=== PATIENT | male | born 1960 | race Caucasian/White ===

== ENCOUNTER → 2019-05-06 08:00 | Outpatient (BNVA) | payer MEDICARE, MEDICAID, SELFPAY | PROVIDERS: Family Provider Family Medicine; PCP Nurse Practitioner; Referring Provider Nurse Practitioner; Visit Provider Nurse Practitioner | DX: E11.9 Type 2 diabetes mellitus without complications (principal) | CPT/HCPCS: 83036 ==

== ENCOUNTER 2019-08-23 00:53 | Emergency (ER) | payer MEDICARE, MEDICAID, SELFPAY ==
--- NOTE | 2019-08-23 01:15 | USCV_ITS ---
Yunier Miller Age: 59 Gender: M : 1960 Exam Date: 08/23/2019 01:48 Ordering Phys: Lilly Silva Technologist: Ministerio Rocha Exam Location: [facility] [place] Indication: NUMBNESS, HX OF STENTS-FEM/POP, NO DP PULSE FELT Risk Factors: Previous Vascular Surgery: RIGHT LEFT BP: 90.00 / 57.00 BP: 90.00/ 60.00 Waveform Velocity (cm/s) Velocity (cm/s) Waveform Iliac Prox 57.5 Monophasic Iliac Mid 57.8 Monophasic Iliac Distal 48.5 Monophasic DATABASE ANALYST Monophasic 49.6 SFA Prox 46.1 Monophasic SFA Mid 52.1 Monophasic SFA Dist 48.7 Monophasic POP 25.6 Monophasic [facility] CARE [facility] 12.0 Monophasic DPA 11.7 Monophasic MC 0.4 FINDINGS LT MC: 0.39 Low velocity, monophasic and continuous waveforms in the iliac and femoral and popliteal artery on the left side. Markedly diminished resting MC on the left side. CONCLUSIONS Abnormal resting MC suggestive of severe obstructive arterial disease on the left side. Possible high-grade lesion at the aortoiliac region with collateral filling of the distal vessels Clinical correlation is recommended. Dr Genesis Calles MD [facility] (Electronically Signed) Final Date: 23 Aug 2019 12:04 S
--- NOTE | 2019-08-23 01:17 | ED_ITS ---
HPI - General Adult General: Stated complaint: possible blood clot Time Seen by Provider: 08/23/19 01:01 Source: patient Mode of arrival: EMS Limitations: no limitations History of Present Illness: HPI narrative: Patient is a 59-year-old male who presents to ED today with complaints of bilateral hand numbness/tingling and numbness to his left lower extremity that began a few hours ago. Patient states upon arrival his symptoms have subsided. Patient tells me he has had numbness to his bilateral lower extremities previously related to his peripheral vascular disease. He also has had previous numbness to his hands that he reports also with due to poor circulation . EMS reported diffusely different blood pressures on patient's arms and patient told them he had some mild chest pain earlier today that has now subsided. Blood pressures to the extremities upon arrival are equal bilaterally. patient tells me he is not having any chest pain now. He has no abdominal pain. Onset (ago): hour(s) Pain Consistency: now resolved Relieving factors: none Exacerbating factors: none Associated symptoms: Reports no associated symptoms; Deny chest pain (briefly-earlier today; mild; none currently ), dyspnea (chronic ), headache(s), nausea, rash, palpitations, syncope or vomiting Treatments prior to arrival: none Review of Systems Const: Denies: fever, chills, body aches or fatigue Eyes: Denies: change in vision, blurry vision, photophobia, floaters or seeing flashes ENMT: Denies: throat pain, enlarged tonsils or painful swallowing Card: Reports: shortness of breath on exertion (chronic-not worsening), shortness of breath when lying down (chronic-COPD) and leg pain with exertion (chronically due to severe PVD); Denies: chest pain (briefly-earlier today; mild; none currently ), palpitations, irregular heart rhythm, edema, lightheadedness, syncope or pre-syncope Resp: Denies: shortness of breath (chronic ), pain on inspiration, coughing up blood or chest congestion GI: Denies: abdominal pain, nausea, vomiting, heartburn/indigestion or diarrhea : Denies: flank pain, difficulty urinating, painful urination, urinary frequency, urinary urgency or urinary hesitancy Musc: Denies: neck pain, back pain or joint pain Skin/Breast: Denies: rash Neuro: Reports: numbness in extremities (subsided now); Denies: headache or weakness in extremities PFSH ED PFSH: Medical History (Updated 08/23/19 @ 02:16 by ARLINE Alegria) Benign hypertension Chronic headache COPD, mild Deviated nasal septum, congenital Hyperlipidemia Insomnia Peripheral neuropathy Surgical History (Updated 05/20/19 @ 12:08 by Aleah Padron MD) H/O xoque-vrvsh-jvexicq bypass H/O foot surgery History of back surgery Social History (Updated 05/20/19 @ 11:38 by Zeynep Cartagena LPN) Smoking and tobacco status: current every day smoker cigarettes Packs smoked per day: 0.5 Quit status (tobacco): considering quitting Second hand smoke exposure: No Alcohol intake: current Alcohol intake frequency: holidays/special occasions only Desire information about alcohol rehabilitation?: No Physical Exam Const: COMMON NORMALS: no apparent distress, average body habitus, oriented x3, no limitations, healthy appearing, alert and well nourished ORIENTATION/CONSCIOUSNESS: Yes oriented to person, Yes oriented to place and Yes oriented to time Chest: COMMONS NORMALS: inspection of chest normal and palpation of chest normal Resp: COMMON NORMALS: normal respiratory effort and clear to auscultation bilaterally AUSCULTATION: clear to auscultation bilaterally Cardio: COMMON NORMALS: regular rate and regular rhythm RATE: regular rate RHYTHM: regular rhythm BRUITS: no carotid bruits PERIPHERAL PULSES: radial pulses present GI: COMMON NORMALS: normal to inspection, nondistended, normoactive bowel sounds, soft to palpation, non-tender, no hepatosplenomegaly and no masses PALPATION: Yes soft and Yes no hepatosplenomegaly Extremity: OTHER: pt with bilateral LE coolness that he states is normal with his PVD; I cannot palpate a left dorsalis pedis pulse; strength intact; cap refill intact Neuro: PERLA COMA SCALE: document GCS findings [place] coma scale eye opening: Spontaneous [place] coma scale verbal response: Orientated [place] coma scale motor response: Obey commands Perla coma scale total score: 15 COMMON NORMALS: oriented x3, CN's II-XII intact bilaterally, moves all extremities, no focal motor deficits and no sensory deficits noted SENSORIUM/ORIENTATION: Yes alert, Yes oriented to person, Yes oriented to place and Yes oriented to time MDM - General Adult MDM Narrative: Medical decision making narrative: Patient symptoms have fully subsided upon arrival. He has no acute neurological deficits on his exam. Ultrasound showing monophasic flow through his left lower extremity which most likely is the patient's baseline. His labs including coags are non-concerning at this time. Blood pressures on both arms are equal. He is not having any chest pain or abdominal pain. At this time I do not have any concern for PE, dissection, aneurysm, cardiac ischemia, acute arterial occlusion, TIA/CVA or any other emergent process at this time. Patient is stable for discharge. Lab Data: Labs: Lab Results 08/23/19 08/23/19 08/23/19 Range/Units 01:30 01:30 01:30 WBC 10.0 (4.0-10.0) 10^3/ uL RBC 4.37 (4.1-5.3) 10^6/u L Hgb 13.4 (11.7-16.6) g/dL Hct 40.6 L (42.0-52.0) % MCV 92.9 (80-94) fL MCH 30.7 (28.0-34.0) pg MCHC 33.0 (30.0-36.0) g/dL RDW 14.0 (12.1-15.1) % Plt Count 275 (130-400) 10^3/c mm MPV 9.7 (7.4-10.4) fL Neut % (Auto) 74.1 % Lymph % (Auto) 18.9 % [place] % (Auto) 5.9 % Eos % (Auto) 0.6 % Baso % (Auto) 0.2 % Neut # (Auto) 7.4 (1.8-7.7) 10^3/u L Lymph # (Auto) 1.9 (0.8-4.8) 10^3/u L [place] # (Auto) 0.6 (0.2-0.9) 10^3/u L Eos # (Auto) 0.1 (0.0-0.8) 10^3/u L Baso # (Auto) 0.0 (0.0-0.1) 10^3/u L Nucleated RBC % (a uto) 0 % Nucleated RBCs # 0.0 /100WBC PT 13.70 H (10.5-13.3) SECO NDS INR 1.02 (0.8-1.2) APTT 31.0 (23.9-36.7) SECO NDS Sodium 135 L (136-145) mmol/L Potassium 4.4 (3.5-5.1) mmol/L Chloride 99 (98-107) mmol/L Carbon Dioxide 20 L (22-29) mmol/L Anion Gap 20.4 H (5-19) BUN 11 (6-20) mg/dL Creatinine 1.6 H (0.7-1.2) mg/dL GFR Calculation 44.6 L (90-130) mL/min Glucose 98 (65-115) mg/dL Calculated Osmolal ity 276 L (285-295) mOsm/k g Calcium 9.0 (8.5-10.5) mg/dL Total Bilirubin 0.2 (0.15-1.2) mg/dL AST 16 (0-40) U/L ALT 22 (0-41) U/L Alkaline Phosphata se 104 (40-130) IU/L Total Protein 6.7 (6.6-8.7) g/dL Albumin 4.0 (3.5-5.2) g/dL Globulin 2.7 (1.3-4.6) g/dL Imaging Data^: US left arterial LE: My impression: Per Ministerio Rocha-monophasic flow throughout; no acute arterial occulsion Discharge Plan Discharge Patient Disposition: Home, Self-Care Clinical Impression: PVD (peripheral vascular disease), Paresthesia Condition: Stable Prescriptions: No Action atorvastatin 80 mg tablet 80 mg PO QDAY RF: 0 fenofibrate micronized 134 mg capsule 134 mg PO QDAY RF: 0 gabapentin 800 mg tablet 800 mg PO TID RF: 0 lisinopril 10 mg tablet 10 mg PO BID RF: 0 coenzyme Q10 200 mg capsule 200 mg PO QDAY RF: 0 CeraVe Cream 1 applic TOPICAL BID RF: 0 tizanidine 4 mg capsule 4 mg PO BID PRNRF: 0 oxcarbazepine 150 mg tablet 150 mg PO BID RF: 0 metoprolol tartrate 25 mg tablet 25 mg PO BID RF: 0 fluticasone propionate [Flonase Allergy Relief] 50 mcg/actuation spray,suspension 1 spray INTRANASAL BID RF: 0 ferrous sulfate 140 mg (45 mg iron) tablet extended release 140 mg PO QDAY RF: 0 isosorbide mononitrate 30 mg tablet extended release 24 hr 30 mg PO QDAY RF: 0 nitroglycerin 0.4 mg tablet, sublingual 0.4 mg SUBLINGUAL Q5M PRNRF: 0 aspirin 325 mg tablet 325 mg PO QDAY RF: 0 amitriptyline 10 mg tablet 20 mg PO QDAY RF: 0 Discharge Orders: Discharge Order (Routine); Ordered 08/23/19 Ordered By: Lilly Silva Referrals: Laney Mata FNP [Primary Care Provider] - Jeiym Mcadams DO [Family Provider] - Discharge Diet: Usual diet Discharge Activity: Resume usual activity Activity Restrictions/Additional Instructions: Follow up with primary care next week for continued symptoms. Return to the emergency department for worsening numbness, tingling, loss of sensation, facial drooping, headache, chest pain, shortness of breath, severe abdominal pain, or any other concerns you may have. 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
[2019-08-23 01:55] LABS: Basophils % 0.2 %; Eosinophils # 0.1 10^3/uL (0.0-0.8); Eosinophils % 0.6 %; Hematocrit 40.6 % (42.0-52.0); Hemoglobin 13.4 g/dL (11.7-16.6); Lymphocytes # 1.9 10^3/uL (0.8-4.8); Lymphocytes % 18.9 %; Mean Corpuscular Hemoglobin 30.7 pg (28.0-34.0); Mean Corpuscular Volume 92.9 fL (80-94); Mean Platelet Volume 9.7 fL (7.4-10.4); Monocytes # 0.6 10^3/uL (0.2-0.9); Monocytes % 5.9 %; Neutrophils # 7.4 10^3/uL (1.8-7.7); Neutrophils % 74.1 %; Nucleated Red Blood Cells % 0 %; Platelet Count 275 10^3/cmm (130-400); Red Blood Count 4.37 10^6/uL (4.1-5.3)
[2019-08-23 02:05] LABS: INR 1.02 (0.8-1.2)
[2019-08-23 02:09] LABS: Alanine Aminotransferase 22 U/L (0-41); Alkaline Phosphatase 104 IU/L (40-130); Anion Gap 20.4 (5-19); Aspartate Amino Transferase 16 U/L (0-40); Blood Urea Nitrogen 11 mg/dL (6-20); Carbon Dioxide 20 mmol/L (22-29); Chloride 99 mmol/L (98-107); Globulin 2.7 g/dL (1.3-4.6); Glomerular Filtration Rate 44.6 mL/min (90-130); Glucose 98 mg/dL (65-115); Osmolality Calculated 276 mOsm/kg (285-295); Potassium 4.4 mmol/L (3.5-5.1); Sodium 135 mmol/L (136-145); Total Bilirubin 0.2 mg/dL (0.15-1.2); Total Protein 6.7 g/dL (6.6-8.7)
[2019-08-23 02:52] VITALS: BP 85/62; PULSE 73; RESP 16; O2SAT 99
== END 2019-08-23 03:13 | disposition home or self-care (01) ==
PROVIDERS: Emergency Provider Physician Assistant; Family Provider Family Medicine; PCP Nurse Practitioner
DX: R20.2 Paresthesia of skin (principal); I73.9 Peripheral vascular disease, unspecified; Z79.82 Long term (current) use of aspirin; I10 Essential (primary) hypertension; J44.9 Chronic obstructive pulmonary disease, unspecified; E78.5 Hyperlipidemia, unspecified; F17.210 Nicotine dependence, cigarettes, uncomplicated; R06.02 Shortness of breath
CPT/HCPCS: 12345; 80053; 85025; 85610; 85730; 93926; 99281; 99283

== ENCOUNTER → 2019-08-27 10:15 | Outpatient (BNVA) | payer MEDICARE, MEDICAID, SELFPAY | PROVIDERS: Family Provider Family Medicine; PCP Nurse Practitioner; Visit Provider Family Medicine | DX: R74.8 Abnormal levels of other serum enzymes (principal) | CPT/HCPCS: 80048 ==

== ENCOUNTER 2020-01-09 14:00 | Emergency (ER) | payer MEDICARE, MEDICAID, SELFPAY ==
[2020-01-09 14:12] VITALS: BP 134/96; PULSE 83; RESP 18; TEMP 36.3; O2SAT 96; BMI 25.9
--- NOTE | 2020-01-09 14:44 | XRR_ITS ---
PROCEDURE INFORMATION: Exam: XR Chest, 1 View Exam date and time: 01/09/2020 3:04 PM Age: 59 years old Clinical indication: Shortness of breath; Additional info: SOB TECHNIQUE: Imaging protocol: XR of the chest Views: 1 view. COMPARISON: No relevant prior studies available. FINDINGS: Lungs: There is a calcified granuloma in the left upper lobe of the lung. No consolidation. Pleural space: Unremarkable. No pleural effusion. No pneumothorax. Heart/Mediastinum: Unremarkable. No cardiomegaly. Bones/joints: Unremarkable. XR/XR chest 1V portable [id number] IMPRESSION: No acute findings.
--- NOTE | 2020-01-09 14:45 | ECG_ITS ---
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 Measurements Intervals [place] Rate: 81 P: 15 MO: 169 QRS: 18 QRSD: 115 T: 24 QT: 394 QTc: 459 Interpretive Statements SINUS RHYTHM POSSIBLE LATERAL MYOCARDIAL INFARCTION , PROBABLY OLD [30 ms Q WAVE IN I/aVL/V5/V6] No previous ECG available for comparison Electronically Signed On 01-09-2020 19:41:44 CDT by Genesis Calles M.D. [id number]
[2020-01-09] MEDS: ipratropium-albuterol 3 mL Neb INHALATION (15:07)
[2020-01-09 15:11] VITALS: PULSE 77; RESP 16; O2SAT 95
[2020-01-09 15:14] VITALS: PULSE 78
--- NOTE | 2020-01-09 15:22 | ED_ITS ---
HPI - SOB/Dyspnea General: Chief Complaint: Shortness of Breath/Dyspnea Stated Complaint: SOB Time Seen by Provider: 01/09/20 14:37 History of Present Illness: HPI Narrative: This patient is a 59-year-old male who presents today with shortness of breath. He said he has not been feeling well for the past couple of days and today was doing some light work around the house. He was on a ladder working over his head and started having some mild chest pain but mostly shortness of breath and lightheadedness. He felt his heart was racing. He has had these episodes before and at times has even passed out from them. He went to see his doctor at the [facility] and [place] and was sent to the ER. He did have a COVID test done there. He has not had any fevers. He has a chronic cough. He has a history of COPD. He continues to smoke. He has oxygen that he uses at night sometimes. He also has inhalers that he sometimes uses. He denies a history of heart attacks. MD elicited complaint: shortness of breath, cough and chest pain Pertinent past history: COPD Onset (ago): hour(s) (5 or 6) Associated symptoms: Reports chest pain; Deny abdominal pain, fever(s), nausea or vomiting Review of Systems General: Reports: 10 or more systems reviewed and unremarkable except in HPI and below Const: Reports: fatigue; Denies: fever(s), chills or malaise Eyes: Denies: change in vision ENMT: Denies: odynophagia Card: Reports: chest pain and dyspnea on exertion; Denies: swelling of feet/ankles Resp: Denies: dyspnea, productive cough or non-productive cough GI: Denies: abdominal pain, nausea or vomiting : Denies: flank pain Musc: Denies: neck pain or back pain Skin/Breast: Denies: rash Neuro: Denies: headache(s), numbness in extremities or weakness in extremities Adria/Lymph: Denies: easy bruising or easy bleeding PFS ED PFSH: Medical History Benign hypertension Chest pain Chronic headache COPD (chronic obstructive pulmonary disease) COPD, mild Deviated nasal septum, congenital Hyperlipidemia Insomnia Near syncope Palpitations Peripheral neuropathy Surgical History H/O titpe-wjtvw-jvbuugi bypass H/O foot surgery History of back surgery Family History Other Cancer Diabetes Heart disease Social History Smoking and tobacco status: current every day smoker cigarettes Packs smoked per day: 0.5 Quit status (tobacco): considering quitting Second hand smoke exposure: No Alcohol intake: current Alcohol intake frequency: holidays/special occasions only Desire information about alcohol rehabilitation?: No Physical Exam Const: COMMON NORMALS: no acute distress, patient oriented x3, no limitations and alert GENERAL APPEARANCE: cooperative and comfortable HENMT: HEAD & SCALP: normal to inspection FACE & SINUS: normal facial exam Eye: GENERAL EYE: appearance normal, both eyes and all related structures Neck/C-Spine: COMMON NORMALS: supple, no meningeal signs and no JVD Chest: COMMONS NORMALS: normal inspection of the chest Resp: COMMON NORMALS: normal respiratory effort, No use of accessory muscles and clear to auscultation bilaterally AUSCULTATION: clear to auscultation bilaterally Cardio: COMMON NORMALS: no JVD, regular rate, regular rhythm and No murmurs present (Cardio) RATE: regular rate RHYTHM: regular rhythm GI: COMMON NORMALS: Normal to inspection, nondistended, normoactive bowel sounds present, Soft to palpation and non-tender INSPECTION: Yes normal to in spection AUSCULTATION: Yes normoactive bowel sounds PALPATION: Yes Soft to palpation Back/Pelvis: COMMON NORMALS: thoracic and lumbar spine normal to inspection Extremity: COMMON NORMALS: normal to inspection Neuro: COMMON NORMALS: patient oriented x3, moves all extremities, no focal motor deficits and no sensory deficits noted SENSORIUM/ORIENTATION: Yes alert MENINGEAL SIGNS: Yes no meningeal signs Psych: COMMON NORMALS: mental status grossly normal, cooperative and normal affect Skin: COMMON NORMALS: no rashes or lesions noted and turgor normal GENERAL SKIN EXAM: no rashes or lesions noted and turgor normal Course ED course: Patient with a normal work-up. His symptoms started while he was working overhead. We discussed that this could be related to some sort of blood flow issue in the blood vessels in his neck. He is completely asymptomatic for the most part here but I suggested that he avoid working over his head, follow- up with his doctor to discuss whether further evaluation is reasonable. He was feeling much better and was discharged home from the ER. He understands to return if he has any new or worse symptoms. Vital Signs: Vital signs: Vital Signs Temperature 97.3 F L 01/09/20 18:15 Pulse Rate 89 01/09/20 18:15 Respiratory Rate 16 01/09/20 18:15 Blood Pressure 161/104 01/09/20 18:15 Pulse Oximetry 94 01/09/20 18:15 MDM - SOB/Dyspnea Lab Data: Labs: Lab Results 01/09/20 01/09/20 01/09/20 Range/Units 14:56 14:56 14:56 WBC 8.9 (4.0-10.0) 10^3/ uL RBC 4.39 (4.1-5.3) 10^6/u L Hgb 14.5 (11.7-16.6) g/dL Hct 42.9 (42.0-52.0) % MCV 97.7 H (80-94) fL MCH 33.0 (28.0-34.0) pg MCHC 33.8 (30.0-36.0) g/dL RDW 13.6 (12.1-15.1) % Plt Count 307 (130-400) 10^3/c mm MPV 9.0 (7.4-10.4) fL Neut % (Auto) 73.6 % Lymph % (Auto) 20.2 % [place] % (Auto) 5.5 % Eos % (Auto) 0.2 % Baso % (Auto) 0.2 % Neut # (Auto) 6.57 (1.8-7.7) 10^3/u L Lymph # (Auto) 1.8 (0.8-4.8) 10^3/u L [place] # (Auto) 0.5 (0.2-0.9) 10^3/u L Eos # (Auto) 0.0 (0.0-0.8) 10^3/u L Baso # (Auto) 0.0 (0.0-0.1) 10^3/u L Nucleated RBC % (a uto) 0 % Nucleated RBCs # 0.0 /100WBC D-Dimer 0.45 (0-0.59) ug/mIFE U Sodium 135 L (136-145) mmol/L Potassium 4.7 (3.5-5.1) mmol/L Chloride 102 (98-107) mmol/L Carbon Dioxide 22 (22-29) mmol/L Anion Gap 15.7 (5-19) BUN 9 (6-20) mg/dL Creatinine 1.0 (0.7-1.2) mg/dL GFR Calculation 76.7 L (90-130) mL/min Glucose 89 (65-115) mg/dL Calculated Osmolal ity 278 L (285-295) mOsm/k g Calcium 9.4 (8.5-10.5) mg/dL Total Bilirubin 0.3 (0.15-1.2) mg/dL AST 15 (0-40) U/L ALT 20 (0-41) U/L Alkaline Phosphata se 84 (40-130) IU/L Troponin T Baselin e (0-15) ng/L Troponin T 120 Min [place] (0-15) ng/L Delta Troponin T (0-10) ABS# NT-Pro-B Natriuret Pep 66 (0-125) pg/mL Total Protein 7.5 (6.6-8.7) g/dL Albumin 4.3 (3.5-5.2) g/dL Globulin 3.2 (1.3-4.6) g/dL 01/09/20 01/09/20 Range/Units 14:56 17:05 WBC (4.0-10.0) 10^3/ uL RBC (4.1-5.3) 10^6/u L Hgb (11.7-16.6) g/dL Hct (42.0-52.0) % MCV (80-94) fL MCH (28.0-34.0) pg MCHC (30.0-36.0) g/dL RDW (12.1-15.1) % Plt Count (130-400) 10^3/c mm MPV (7.4-10.4) fL Neut % (Auto) % Lymph % (Auto) % [place] % (Auto) % Eos % (Auto) % Baso % (Auto) % Neut # (Auto) (1.8-7.7) 10^3/u L Lymph # (Auto) (0.8-4.8) 10^3/u L [place] # (Auto) (0.2-0.9) 10^3/u L Eos # (Auto) (0.0-0.8) 10^3/u L Baso # (Auto) (0.0-0.1) 10^3/u L Nucleated RBC % (a uto) % Nucleated RBCs # /100WBC D-Dimer (0-0.59) ug/mIFE U Sodium (136-145) mmol/L Potassium (3.5-5.1) mmol/L Chloride (98-107) mmol/L Carbon Dioxide (22-29) mmol/L Anion Gap (5-19) BUN (6-20) mg/dL Creatinine (0.7-1.2) mg/dL GFR Calculation (90-130) mL/min Glucose (65-115) mg/dL Calculated Osmolal ity (285-295) mOsm/k g Calcium (8.5-10.5) mg/dL Total Bilirubin (0.15-1.2) mg/dL AST (0-40) U/L ALT (0-41) U/L Alkaline Phosphata se (40-130) IU/L Troponin T Baselin e 11 (0-15) ng/L Troponin T 120 Min [place] 9.87 (0-15) ng/L Delta Troponin T -1.13 L (0-10) ABS# NT-Pro-B Natriuret Pep (0-125) pg/mL Total Protein (6.6-8.7) g/dL Albumin (3.5-5.2) g/dL Globulin (1.3-4.6) g/dL Discharge Plan Discharge Patient Disposition: Home Clinical Impression: COPD, mild Chest pain Qualifiers: Chest pain type: unspecified Qualified Code(s): R07.9 - Chest pain, unspecified Condition: Stable Prescriptions: No Action coenzyme Q10 200 mg capsule 200 mg PO DAILY RF: 0 CeraVe Cream 1 applic TOPICAL BID RF: 0 tizanidine 4 mg capsule 4 mg PO BID PRN (Reason: Muscle Pain) RF: 0 oxcarbazepine 150 mg tablet 150 mg PO BID RF: 0 metoprolol tartrate 25 mg tablet 25 mg PO BID RF: 0 fluticasone propionate [Flonase Allergy Relief] 50 mcg/actuation spr ay,suspension 1 spray INTRANASAL BID RF: 0 ferrous sulfate 140 mg (45 mg iron) tablet extended release 140 mg PO DAILY RF: 0 isosorbide mononitrate 30 mg tablet extended release 24 hr 30 mg PO DAILY RF: 0 nitroglycerin 0.4 mg tablet, sublingual 0.4 mg SUBLINGUAL Q5M PRN (Reason: Chest Pain) RF: 0 aspirin 325 mg tablet 325 mg PO DAILY RF: 0 amitriptyline 10 mg tablet 20 mg PO DAILY RF: 0 fenofibric acid (choline) 135 mg capsule,delayed release(DR/EC) 135 mg PO DAILY 90 Days Qty: 90 RF: 2 lisinopril 10 mg tablet 10 mg PO BID 90 Days Qty: 180 RF: 1 gabapentin 800 mg tablet 800 mg PO TID 90 Days Qty: 270 RF: 2 Crestor 10 mg Tablet 10 mg PO DAILY RF: 0 Discharge Orders: Discharge Order (Routine); Ordered 01/09/20 Ordered By: Diamond Nieto Referrals: Laney Mata FNP [Primary Care Provider] - Discharge Diet: Usual diet Discharge Activity: Resume usual activity Patient Instructions: Chest Pain (ED) Activity Restrictions/Additional Instructions: Return to the ED if new or worse symptoms. Talk with your primary care doctor about the dizzy spells while working of your head. 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
[2020-01-09 15:23] LABS: Basophils % 0.2 %; Eosinophils % 0.2 %; Hematocrit 42.9 % (42.0-52.0); Hemoglobin 14.5 g/dL (11.7-16.6); Lymphocytes # 1.8 10^3/uL (0.8-4.8); Lymphocytes % 20.2 %; Mean Corpuscular HGB Conc 33.8 g/dL (30.0-36.0); Mean Corpuscular Volume 97.7 fL (80-94); Monocytes # 0.5 10^3/uL (0.2-0.9); Monocytes % 5.5 %; Neutrophils # 6.57 10^3/uL (1.8-7.7); Neutrophils % 73.6 %; Nucleated Red Blood Cells % 0 %; Platelet Count 307 10^3/cmm (130-400); Red Blood Count 4.39 10^6/uL (4.1-5.3); Red Cell Distribution Width 13.6 % (12.1-15.1); White Blood Count 8.9 10^3/uL (4.0-10.0)
[2020-01-09 15:40] LABS: D Dimer 0.45 ug/mIFEU (0-0.59)
[2020-01-09 15:48] LABS: Troponin(5th) Baseline 11 ng/L (0-15)
[2020-01-09 15:55] LABS: Alanine Aminotransferase 20 U/L (0-41); Albumin Level 4.3 g/dL (3.5-5.2); Alkaline Phosphatase 84 IU/L (40-130); Anion Gap 15.7 (5-19); Aspartate Amino Transferase 15 U/L (0-40); Blood Urea Nitrogen 9 mg/dL (6-20); Calcium 9.4 mg/dL (8.5-10.5); Carbon Dioxide 22 mmol/L (22-29); Chloride 102 mmol/L (98-107); Globulin 3.2 g/dL (1.3-4.6); Glomerular Filtration Rate 76.7 mL/min (90-130); Glucose 89 mg/dL (65-115); NT Pro B Type Natriuretic Pept 66 pg/mL (0-125); Osmolality Calculated 278 mOsm/kg (285-295); Potassium 4.7 mmol/L (3.5-5.1); Sodium 135 mmol/L (136-145); Total Bilirubin 0.3 mg/dL (0.15-1.2); Total Protein 7.5 g/dL (6.6-8.7)
--- NOTE | 2020-01-09 16:45 | ECG_ITS ---
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 Measurements Intervals [place] Rate: 85 P: 36 AL: 170 QRS: 42 QRSD: 96 T: 42 QT: 378 QTc: 450 Interpretive Statements SINUS RHYTHM POSSIBLE RIGHT VENTRICULAR CONDUCTION DELAY [RSR (QR) IN V1/V2] No previous ECG available for comparison Electronically Signed On 01-09-2020 19:54:38 CDT by Genesis Calles M.D. [id number] f
[2020-01-09 17:30] LABS: Troponin 5 2HR 9.87 ng/L (0-15)
[2020-01-09 17:31] LABS: Troponin 5 2HR Delta -1.13 ABS# (0-10)
[2020-01-09 18:15] VITALS: BP 161/104; PULSE 89; RESP 16; TEMP 36.3; O2SAT 94
== END 2020-01-09 18:15 | disposition home or self-care (01) ==
PROVIDERS: Emergency Provider Emergency Medicine; PCP Nurse Practitioner
DX: J44.9 Chronic obstructive pulmonary disease, unspecified (principal); R07.9 Chest pain, unspecified; Z79.82 Long term (current) use of aspirin; I10 Essential (primary) hypertension; E78.5 Hyperlipidemia, unspecified; F17.210 Nicotine dependence, cigarettes, uncomplicated
CPT/HCPCS: 12345; 36415; 71045; 80053; 83880; 84484; 85025; 85378; 87635; 93005; 94640; 96374; 99282; 99284; J2930

== ENCOUNTER → 2020-09-07 13:55 | Outpatient (BNVA) | payer MEDICARE, MEDICAID, SELFPAY | PROVIDERS: PCP Nurse Practitioner; Visit Provider Family Medicine | DX: G62.9 Polyneuropathy, unspecified (principal); I10 Essential (primary) hypertension; B35.1 Tinea unguium; Q84.5 Enlarged and hypertrophic nails; E78.2 Mixed hyperlipidemia; R74.8 Abnormal levels of other serum enzymes; I50.42 Chronic combined systolic (congestive) and diastolic (congestive) heart failure; G63 Polyneuropathy in diseases classified elsewhere; I73.9 Peripheral vascular disease, unspecified | CPT/HCPCS: 80053; 80061 ==

== ENCOUNTER → 2021-03-11 11:48 | Outpatient (BNVA) | payer MEDICARE, MEDICAID, SELFPAY | PROVIDERS: PCP Family Medicine; Visit Provider Family Medicine | DX: I10 Essential (primary) hypertension (principal); E78.5 Hyperlipidemia, unspecified; G62.9 Polyneuropathy, unspecified; I50.42 Chronic combined systolic (congestive) and diastolic (congestive) heart failure; I25.10 Atherosclerotic heart disease of native coronary artery without angina pectoris; E78.2 Mixed hyperlipidemia; M54.9 Dorsalgia, unspecified; G89.29 Other chronic pain; J44.9 Chronic obstructive pulmonary disease, unspecified; B37.2 Candidiasis of skin and nail; B35.6 Tinea cruris | CPT/HCPCS: 80053; 80061; 85025 ==

== ENCOUNTER → 2021-04-16 14:22 | Outpatient (BNVA) | payer MEDICARE, MEDICAID, SELFPAY | PROVIDERS: PCP Family Medicine; Visit Provider Nurse Practitioner Family | DX: R39.9 Unspecified symptoms and signs involving the genitourinary system (principal) | CPT/HCPCS: 81000 ==

== ENCOUNTER → 2021-06-11 16:42 | Outpatient (BNVA) | payer MEDICARE, MEDICAID, SELFPAY | PROVIDERS: PCP Family Medicine; Visit Provider Nurse Practitioner Family | DX: R07.81 Pleurodynia (principal) | CPT/HCPCS: 71100 ==

== ENCOUNTER → 2021-08-19 16:00 | Outpatient (BNVA) | payer MEDICARE, MEDICAID, SELFPAY | PROVIDERS: PCP Family Medicine; Visit Provider Emergency Medicine | DX: R31.9 Hematuria, unspecified (principal); R31.0 Gross hematuria | CPT/HCPCS: 80053; 81000; 85025; 86301; 87086; 88112; G0103 ==

== ENCOUNTER → 2021-09-16 08:22 | Outpatient (BNVA) | payer MEDICARE, MEDICAID, SELFPAY | PROVIDERS: PCP Family Medicine; Visit Provider Nurse Practitioner Family | DX: R31.0 Gross hematuria (principal) | CPT/HCPCS: 51741; 51798; 81003; 87086; 88112; 99203 ==

== ENCOUNTER 2021-10-07 10:22 | Outpatient (CLI) | payer MEDICARE, MEDICAID, SELFPAY ==
[2021-10-07 11:50] LABS: Blood Urea Nitrogen 8 mg/dL (8-23); Glomerular Filtration Rate 76.2 mL/min (90-130)
--- NOTE | 2021-10-07 12:30 | CT_ITS ---
WS: [id number] CT ABDOMEN PELVIS TECHNIQUE: Noncontrast CT of the abdomen and contrast-enhanced CT of the abdomen and pelvis with mckenzie nal and sagittal reformatted images. CLINICAL INFORMATION: GROSS HEMATURIA COMPARISON: None. DLP: 3440.[address] scans at [facility] use at least one of these dose optimization techniques: automated e xposure control; mA and/or kV adjustment per patient size (includes targeted exams where dose is matc hed to clinical indication); or iterative reconstruction. FINDINGS: Noncontrast liver is normal. Splenic granulomas. Fatty atrophy of the pancreas. Prior Kaci fundopli cation. Slight bibasilar atelectasis. Adrenal glands are normal. No hydronephrosis in either kidney. Cholelithiasis. Normal caliber abdominal aorta. Mild aortic calcification. No obstructing renal or ur eteral calculi. Tiny RIGHT renal cysts. Vascular calcification. No obstructing renal or ureteral calc nazia. Normal excretion on the delayed images. No filling defects in the ureters. Normal visualized mery dder. Normal bladder filling on the delayed images. Normal portal vein and splenic vein. Mild diffuse fatty infiltration the liver. Splenic granulomas. P ancreas appears normal. Tiny fat-containing umbilical hernia. Normal appendix in the RIGHT lower quad rant. No free fluid in the abdomen or pelvis. Prior femorofemoral bypass graft. LEFT common iliac criselda ears occluded. No periaortic lymphadenopathy. No pelvic or inguinal lymphadenopathy. Small fat-contai mandy inguinal hernias. Pedicle screw fixation L5-S1 with interbody fusion. Slight retrolisthesis L2 o n L3. CT/CT abdomen pelvis wo/w 24020 IMPRESSION: 1. Normal renal cortical enhancement. No hydronephrosis in either kidney. 2. No obstructing renal or ureteral calculi. 3. Tiny RIGHT renal cysts. 4. Normal excretion on the delayed images. No obstructing ureteral calculi or filling defects. 5. Bladder appears normal. 6. Prostate calcification measuring 4.1 cm. 7. Prior Kaci fundoplication. 8. Tiny calculi in the gallbladder. 9. Prior femorofemoral bypass graft. 10. LEFT common iliac artery appears occluded.
[2021-10-07] MEDS: iohexol 300 mg/mL 100 mL Btl IV (12:38)
== END 2021-10-07 10:23 | disposition home or self-care (01) ==
PROVIDERS: Urology; PCP Family Medicine; Visit Provider Nurse Practitioner Family
DX: N28.1 Cyst of kidney, acquired (principal); K80.20 Calculus of gallbladder without cholecystitis without obstruction; R31.0 Gross hematuria
CPT/HCPCS: 52000; 74178; 81003; 82565; 84520; 99213

== ENCOUNTER 2021-12-20 14:47 | Observation (INO) | payer MEDICARE, MEDICAID, SELFPAY ==
[2021-12-20] VITALS (30 sets, daily range): BP systolic 112–138; BP diastolic 76–96; PULSE 68–95; RESP 13–28; TEMP 36.8–36.9; O2SAT 91–99; BMI 25.5
--- NOTE | 2021-12-20 14:52 | ECG_ITS ---
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 Measurements Intervals [place] Rate: 91 P: 24 NM: 164 QRS: -1 QRSD: 96 T: 85 QT: 370 QTc: 456 Interpretive Statements SINUS RHYTHM ST DEVIATION AND MODERATE T-WAVE ABNORMALITY, CONSIDER ANTEROLATERAL ISCHEMIA [-0.1+ mV T-WAVE IN V3-V6] Compared to ECG 01/09/2020 15:26:29 T-wave abnormality now present Possible ischemia now present Myocardial infarct finding no longer present Electronically Signed On 12-21-2021 16:30:01 CDT by Lavelle Markham M.D. [id number]
[2021-12-20] MEDS: heparin 5,000 unit/mL INJ 1 mL 4000 UNIT IVP (15:03)
[2021-12-20] MEDS: clopidogrel 300 mg Tablet 600 MG PO (15:04)
--- NOTE | 2021-12-20 15:14 | PM.HP ---
Providers/Chief Complaint Admitting Physician: cody Primary Care Provider: Aleah Padron MD Chief Complaint: STEMI History of Present Illness Yunier Miller is a 61 year old male with a history of coronary artery disease. I do not know the details of this he tells me that he has had 2 stents placed in the past. Last night he was feeling fine but when he went to bed he stated that he was sweating all night. He was not complaining of shortness of breath or chest discomfort. This morning at about 8:00 he noticed the onset of shortness of breath. When I specifically asked him about chest pain he said no just some pressure there . He went to the local clinic in [place] early this afternoon. After taking the history they obtained an EKG and noticed some changes in his anterior precordial leads. They called an ambulance to bring him here. In the ambulance he received a sublingual nitroglycerin, 1 inch of Nitropaste, 350 mL of normal saline, aspirin 325 mg and 4 mg of Zofran. In route his blood pressure was 122/84. He was not having any chest pain according to the ambulance crew On his arrival here his blood pressure is 122/84. He is not having any chest pain at all. I gave him 4000 units of heparin and 600 mg of Plavix. The EKG from the ambulance shows a Wellens phenomenon in the anterior precordial leads especially leads V1 through V4. The twelve-lead EKG shows the same finding which suggest anterolateral ischemia. It does not meet the criteria for an ST segment elevation [place]. Has been smoking since he was a teenager. He has underlying COPD. He also has dyslipidemia, hypertension and peripheral arterial disease. He tells me that he has stents in both legs and then has had an aorto iliac bypass of some kind. Review of Systems Narrative: The review of systems is negative aside from the sweating that he described overnight. Medications/Allergies Home Medications Medication Instructions Recorded Confirmed Last Taken Type amitriptyline 10 mg tablet 20 mg PO DAILY 05/16/19 12/20/21 01/08/20 History aspirin 325 mg tablet 325 mg PO DAILY 05/16/19 12/20/21 01/09/20 History coenzyme Q10 200 mg capsule 200 mg PO DAILY 05/16/19 12/20/21 01/09/20 History ferrous sulfate 140 mg (45 mg 140 mg PO DAILY 05/16/19 12/20/21 01/09/20 History iron) tablet,extended release fluticasone propionate 50 1 spray intranasal BID 05/16/19 12/20/21 Unknown History mcg/actuation nasal spray,suspension (Flonase Allergy Relief) nitroglycerin 0.4 mg sublingual 0.4 mg sublingual Q5M PRN Chest 05/16/19 12/20/21 Unknown History tablet Pain oxcarbazepine 150 mg tablet 150 mg PO BID 05/16/19 12/20/21 01/09/20 History fenofibric acid (choline) 135 mg 135 mg PO DAILY 90 days #90 caps 03/11/21 12/20/21 Unknown Rx capsule,delayed release nystatin 100,000 unit/gram topical 1 applic topical DAILY #60 grams 03/11/21 12/20/21 Unknown Rx powder rosuvastatin 10 mg tablet (Crestor) 10 mg PO DAILY 90 days #90 tabs 03/11/21 12/20/21 Unknown Rx acetaminophen 300 mg-codeine 30 mg 1 tab PO Q6H PRN pain #15 tabs 06/11/21 12/20/21 Unknown Rx tablet tizanidine 4 mg capsule 4 mg PO BID PRN 09/16/21 12/20/21 Unknown History gabapentin 800 mg tablet 800 mg PO TID 90 days #270 tabs 09/30/21 12/20/21 Unknown Rx isosorbide mononitrate 30 mg 30 mg PO DAILY 90 days #90 tabs 09/30/21 12/20/21 Unknown Rx tablet,extended release 24 hr metoprolol tartrate 25 mg tablet 25 mg PO BID 90 days #180 tabs 09/30/21 12/20/21 Unknown Rx vitamin [id number] B1 1,000 1 ml IM 10/06/21 12/20/21 Unknown History mcg-100 mg/mL injection solution Allergies Allergy/AdvReac Type Severity Reaction Status Date / Time No Known Allergies Allergy Verified 12/20/21 13:22 PFSH Acute PFSH: Medical History Benign hypertension Lisinopril DC due to low BP Chest pain Chronic headache COPD (chronic obstructive pulmonary disease) COPD, mild Deviated nasal septum, congenital Gross hematuria Hyperlipidemia Insomnia Near syncope Palpitations Peripheral arterial disease Peripheral neuropathy Smoking Surgical History (Updated 12/20/21 @ 15:24 by Skyler Freeman MD) H/O pogai-wisbo-xcyogkv bypass H/O foot surgery History of back surgery Family History Mother Age related osteoporosis Father , at age 78 Skin cancer Esophageal cancer Other Diabetes Heart disease Social History Smoking and tobacco status: current every day smoker cigarettes Packs smoked per day: 0.5 Quit status (tobacco): considering quitting Second hand smoke exposure: No Alcohol intake: current Alcohol intake frequency: few times a week Desire information about alcohol rehabilitation?: No Caregiver/support person: No Lives independently: Yes Household members: family Marital status: Single Current occupational status: disabled Pets and animals: Yes Pets & animals: cat(s) History of recent travel: No Vitals/I&O/Wt Last Vital Signs Temp 98.2 F 12/20/21 14:54 Pulse 93 12/20/21 14:54 Resp 16 12/20/21 14:54 BP 132/92 12/20/21 14:54 Pulse Ox 94 12/20/21 14:54 O2 Del Method 12/20/21 14:54 Weight last 48 hrs Weight 178 lb Physical Exam Narrative: GENERAL: In general he is comfortable without any chest pain at this time HEENT: Exam within normal limits. NECK: Supple without jugular vein distention. The carotid upstroke is normal without bruits. BACK: Exam normal. LUNGS: Clear. HEART: Regular rate and rhythm. ABDOMEN: Benign without organomegaly or tenderness. EXTREMITIES: No edema. NEUROLOGIC: Exam normal. SKIN: Unremarkable. A&P Assessment and plan (1) Acute coronary syndrome: Status: Acute (2) Smoking: Status: Acute (3) CAD (coronary artery disease): Status: Acute Qualifiers: Coronary Disease-Associated Artery/Lesion type: [place] artery [place] vs. transplanted heart: [place] heart Associated angina: without angina Qualified Code(s): I25.10 - Atherosclerotic heart disease of [place] coronary artery without angina pectoris (4) Tobacco abuse: Status: Acute (5) Hyperlipidemia: Status: Chronic Qualifiers: Hyperlipidemia type: mixed hyperlipidemia Qualified Code(s): E78.2 - Mixed hyperlipidemia (6) Benign hypertension: Status: Chronic (7) Peripheral arterial disease: Status: Acute (8) Chronic headache: Status: Chronic Qualifiers: Headache type: tension-type Intractability: not intractable Qualified Code(s): G44.229 - Chronic tension-type headache, not intractable Plan This EKG phenomenon suggest a tight LAD lesion. He is free of pain and currently is hemodynamically stable. I think it is best if we move to angiography sooner rather than later so that this does not happen at midnight or 2:00 in the morning. Therefore, we will proceed with angiography shortly. Attestations Medical Necessity Statement*: Hospitalization for management of a acute coronary syndrome. Coding Level of Care Code New Pt Acute Manager User Experience for Chg Fwd Patient Type New History Detailed Exam Detailed Medical Decision Making Moderate Complexity Diagnoses Acute coronary syndrome I24.9 Smoking F17.200 CAD (coronary artery disease) I25.10 Coronary Disease-Associated Artery/Lesion type: [place] artery [place] vs. transplanted heart: [place] heart Associated angina: without angina Tobacco abuse Z72.0 Hyperlipidemia E78.2 Hyperlipidemia type: mixed hyperlipidemia Benign hypertension I10 Peripheral arterial disease I73.9 Chronic headache G44.229 Headache type: tension-type Intractability: not intractable
[2021-12-20 15:33] LABS: Basophils % 0.3 %; Eosinophils % 0.3 %; Hemoglobin 14.8 g/dL (11.7-16.6); Lymphocytes # 1.7 10^3/uL (0.8-4.8); Lymphocytes % 17.9 %; Mean Corpuscular HGB Conc 32.9 g/dL (30.0-36.0); Mean Corpuscular Hemoglobin 31.4 pg (28.0-34.0); Mean Corpuscular Volume 95.5 fl (80-94); Mean Platelet Volume 9.6 fL (7.4-10.4); Monocytes # 0.8 10^3/uL (0.2-0.9); Monocytes % 7.9 %; Neutrophils # 7.11 10^3/uL (1.8-7.7); Neutrophils % 73.3 %; Nucleated Red Blood Cells % 0 %; Platelet Count 267 10^3/cmm (130-400); Red Blood Count 4.71 10^6/uL (4.1-5.3); Red Cell Distribution Width 13.7 % (12.1-15.1); White Blood Count 9.7 10^3/uL (4.0-10.0)
--- NOTE | 2021-12-20 15:38 | XACV_ITS ---
Exam Room: 1 Ht: 178 cm Wt: 82 kg BSA: 2.02 m2 Gender: Male : 1960 Exam Priority: Routine Procedure(s): Procedure Description: Diagnostic procedure Procedure Description: Left Heart Catheterization Procedure Description: Coronary Angiography Diagnostic Cath Status: Urgent Diagnostic Findings * Patient is 61 years old has a history of vascular disease. Previous multiple stents to the right coronary artery. Also peripheral arterial disease with previous iliac stents and then aortobifemoral bypass. Arrived at a local clinic today with shortness of breath. EKG there revealed ST changes consistent with either unstable angina, Wellens phenomena or aneurysmal formation of the anterior wall and LAD. These changes were new compared to previous tracings. Because of the concern for unstable angina I decided to take him to the [facility] sooner rather than later.. * Coronary angiography reveals right coronary artery dominance. The right coronary artery is a very large vessel and has been previously stented from just past the ostium all the way around the acute margin. It is patent. It provides collateral flow to the chronically occluded LAD. The left main coronary artery is normal. The LAD is occluded in the proximal portion at the takeoff of a fairly large diagonal branch and a large septal branch. There is some minimal collateral flow from the septal and diagonal branches. The circumflex is a relatively small vessel but is unremarkable. * After being given the troponin results, which is 14, it became clear based on the angiogram that this is a chronic total occlusion and that EKG changes are related to aneurysmal formation of the ventricle. I made a brief attempt to wire the LAD but this was unsuccessful. I then stopped the procedure. Conclusions 1. 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 Ejection fraction 40% with anterior and apical wall motion disturbances. Recommendations * Medical treatment. Interventional RX Recommendation: none Diagnostic RX Recommendation: none Anticoagulation: Heparin Ventriculography Ejection Fraction: 40.0 % Pressures Phase:Rest AO : 113 / 71 ( 89 ) @ 5:22:00 PM LV : 125 / -11 / 7 @ 5:21:00 PM 126 / -8 / 9 @ 5:22:00 PM 125 / -10 / 8 @ 5:22:00 PM Valves Phase:DefaultPhase AV : 13.0 @ 4:47:28 PM AV Mean Gradient: 22.0 @ 4:47:28 PM 22.0 @ 4:47:28 PM Clinical Evaluation EBL: 5mL-10mL Procedural Details Pre-Procedure Time Out. Identified patient by full name and date of as verbalized by the patient/guarantor. Does the consent match the physician's order: Yes. Accurate & Complete Informed Consent: Yes. Inpatient/Outpatient History & Physical on Chart: Yes. If H&P is completed, is and addenduem needed: No; If yes, is the addendum complete: N/A. Visualize and Verify Site with Patient/Guarantor: N/A. Relevant Radiology Images available: No. Pre-op teaching completed and patient verbalized understanding. The risks, benefits, and alternatives of sedation and/or procedure were discussed by physician. The patient agrees to continue. Procedure started. [facility] Clinical Fraility Score: 4: Vulnerable. [facility] Indications: ACS <= 24 hours. Chest Pain Symptom Assessment: Typical Angina Symptoms. Correct patient, site and procedure confirmed by cath team. Current diagnosis: ACS. IV Site on Arrival: 18 gauge in the left anticubital. IV Fluids: 0.9% NaCl at KVO. 500 mL infused prior to field laboratory operator. Pre Procedural Pulses: right radial was 3+. Oxygen started at 2liters/min via nasal canula. right radial was prepped with chloroprep then draped in the usual sterile fashion. Physician notified. Baseline sample Acquired. HR: 94 BPM. Physician arrived. Physician scrubbed in. Immediate Pre-Procedure Time Out. Correct Patient: Yes; Correct Procedure: Yes; Correct Site: Yes; Correct Patient Position: Yes; Correct Supplies: Yes; Dried Flammable Prep: Yes; Blood Products Available: No;. Admit Source: Emergency department. Lidocaine 1% infiltrated to the right radial. Arterial access obtained. A 6 [place] TIG catheter in over wire. Multiple views taken of left coronary artery. Catheter redirected to the RCA. Multiple views taken of right coronary artery. Catheter removed over the standard wire. A 6 tristanian Angled Pig catheter in over wire. EDP Sample taken: LV 125/-12,7; HR: 90 BPM; SpO2: 96%. LV gram performed in BARRIOS @ 10 mL/second for a total of 30 mL. EDP Sample taken: LV 126/-9,9; HR: 89 BPM; SpO2: 96%. Pullback taken: LV 125/-11,8; AO 113/71(89); Mean: 22mmHg, Peak to Peak: 13mmHg, SEP: 8sec/min; HR: 89 BPM; SpO2: 96%. Catheter removed over the standard wire. 6 [place]istan[place] XB 3 guide catheter was inserted over the wire. standard wire out. [place] guidewire was advanced through the guide catheter to lesion in the prox LAD. Unable to cross lesion, guidewire removed. [place] wire out. Guide catheter out. Post Procedure: Pulses reassessed and unchanged. PERRLA. Strong, equal hand conditioning machine operator bilaterally. No VTE prophylaxis required. Post-op diagnosis: CAD. Complications: None. Estimated blood loss: 5mL-10mL. Responsiveness - Normal response to verbal stimuli; alert and oriented, PERRLA. Airway - Unaffected, no intervention required; spontaneous ventilation. Circulation: W/N/L, pulses unchanged. Nausea/Vomiting: N/A. Medication's Wasted: Lidocaine 1% = 3 mL. Medication's Wasted: Heparin = 1000 unit. Medication's Wasted: Nitro = 49.8 mg. Total IV fluids: 98 mL. A TR Band was successful obtaining hemostatsis at the Right Radial artery insertion site. Procedure completed. Patient transferred by wheelchair to ICU. Vital chart was stopped. Access Site Site: Right Radial artery Sheath Size: 6 Fr Hemostasis Method: TR Band Hemostasis Success: Successful Procedure Medications Start: 3:58 PM Stop: 3:58 PM Medication: Versed Amount: 1 mg Route: I.V. Start: 3:58 PM Stop: 3:58 PM Medication: Fentanyl Amount: 50 mcg Route: I.V. Start: 4:02 PM Stop: 4:02 PM Medication: Versed Amount: 1 mg Route: I.V. Start: 4:28 PM Stop: 4:28 PM Medication: Versed Amount: 1 mg Route: I.V. I, the attending physician, have reviewed and verified all procedure medications. Yes, all medications given per verbal order History/Risk Factors Hypertension: Yes Dyslipidemia: Yes Peripheral Arterial Disease (PAD): Yes Myocardial Infarction (IA): No Obesity: No Renal Disease: No Prior Interventions PCI: Yes CABG: No Valve Surgery: No Report Signatures Finalized by Dr. Skyler Freeman MD on 12/20/2021 05:09 PM
--- NOTE | 2021-12-20 15:51 | W.ED.CHESTPA ---
HPI - Chest Pain General: Chief Complaint: Chest Pain Stated Complaint: STEMI Time Seen by Provider: 12/20/21 15:04 Source: patient Mode of arrival: EMS History of Present Illness: 61-year-old male with a known history of coronary disease presents emergency room from one of the local walk-in clinics. This morning and some chest tightness and diaphoresis. He felt like he was having a heart attack he went to the clinic and was sent here by EMS with some acute EKG changes. In route he was given a sublingual nitro Nitropaste and 324 of aspirin on arrival here his symptoms had resolved his EKG had actually improved some. He is a smoker and he has a known history of peripheral vascular disease and coronary disease he has had previous stenting and coronary arteries x2 and he is also had PTCA for lower extremity peripheral vascular disease. MD complaint: chest pain and chest heaviness Pertinent past history: coronary artery disease and prior CO Onset (ago): hour(s) Timing of current episode: episodic Prior episodes: Yes Onset: during rest Pain location: left chest Severity: moderate Quality: aching and heaviness Relieving factors: nitroglycerin Exacerbating factors: nothing Associated symptoms: Reports diaphoresis and dyspnea; Deny abdominal pain, fever(s), leg edema, nausea, palpitations, sense of impending doom, syncope or vomiting Treatment prior to arrival: none Review of Systems Const: Reports: diaphoresis; Denies: fever(s), chills, fatigue or malaise ENMT: Denies: throat pain, ear or mastoid pain, nasal discharge or nasal congestion Card: Reports: chest pain; Denies: palpitations, irregular heart rhythm, edema, swelling of feet/ankles or syncope Resp: Reports: dyspnea GI: Denies: abdominal pain, nausea or vomiting : Denies: flank pain, difficulty urinating, dysuria, urinary frequency or urinary urgency Skin/Breast: Denies: rash or pruritus PFSH ED PFSH: Medical History Benign hypertension Lisinopril DC due to low BP Chest pain Chronic headache COPD (chronic obstructive pulmonary disease) COPD, mild Deviated nasal septum, congenital Gross hematuria Hyperlipidemia Insomnia Ischemic cardiomyopathy Near syncope Old anterior wall myocardial infarction Palpitations Peripheral arterial disease Peripheral neuropathy Smoking Surgical History H/O qjqob-nzqju-czlrdqp bypass H/O foot surgery History of back surgery Family History Mother Age related osteoporosis Father , at age 78 Skin cancer Esophageal cancer Other Diabetes Heart disease Social History Smoking and tobacco status: current every day smoker cigarettes Packs smoked per day: 0.5 Quit status (tobacco): considering quitting Second hand smoke exposure: No Alcohol intake: current Alcohol intake frequency: few times a week Desire information about alcohol rehabilitation?: No Caregiver/support person: No Lives independently: Yes Household members: family Marital status: Single Current occupational status: disabled Pets and animals: Yes Pets & animals: cat(s) History of recent travel: No Physical Exam Const: GENERAL APPEARANCE: cooperative and comfortable ORIENTATION/CONSCIOUSNESS: Yes awake, Yes oriented to person, Yes oriented to place and Yes oriented to time HENMT: COMMON NORMALS: normocephalic, atraumatic and hearing grossly normal bilaterally HEAD & SCALP: normocephalic and atraumatic Resp: COMMON NORMALS: normal respiratory effort, No retractions, No use of accessory muscles and clear to auscultation bilaterally AUSCULTATION: clear to auscultation bilaterally Cardio: COMMON NORMALS: regular rate, regular rhythm and No murmurs present (Cardio) RATE: regular rate RHYTHM: regular rhythm GI: COMMON NORMALS: Soft to palpation and No hepatosplenomegaly present AUSCULTATION: Yes normoactive bowel sounds PALPATION: Yes Soft to palpation, No Tenderness to palpation present (GI), No Guarding due to palpation present (GI) and Yes No hepatosplenomegaly present Extremity: COMMON NORMALS: normal to inspection, capillary refill normal, no clubbing, cyanosis or edema, no calf tenderness and no pedal edema Neuro: SENSORIUM/ORIENTATION: Yes oriented to person, Yes oriented to place and Yes oriented to time Skin: COMMON NORMALS: no rashes or lesions noted GENERAL SKIN EXAM: no rashes or lesions noted Course Vital Signs: Vital signs: Vital Signs Temperature 98.8 F 12/21/21 09:23 Pulse Rate 89 12/21/21 09:23 Respiratory Rate 18 12/21/21 09:23 Blood Pressure 133/86 12/21/21 09:23 Pulse Oximetry 97 12/21/21 09:23 Oxygen Delivery Me thod 12/21/21 06:00 MDM - Chest Pain Medical Decision Making Cardiology has seen the patient in the ER and they are taking patient to [facility]. Medical Records I reviewed the patient's medical records. Lab Data I reviewed the patient's lab results. : 12/20/21 15:18 12/20/21 15:18 Laboratory Results WBC 9.7 10^3/uL (4.0-10.0) 12/20/21 15:18 RBC 4.71 10^6/uL (4.1-5.3) 12/20/21 15:18 Hgb 14.8 g/dL (11.7-16.6) 12/20/21 15:18 Hct 45.0 % (42.0-52.0) 12/20/21 15:18 MCV 95.5 fl (80-94) H 12/20/21 15:18 MCH 31.4 pg (28.0-34.0) 12/20/21 15:18 MCHC 32.9 g/dL (30.0-36.0) 12/20/21 15:18 RDW 13.7 % (12.1-15.1) 12/20/21 15:18 Plt Count 267 10^3/cmm (130-400) 12/20/21 15:18 MPV 9.6 fL (7.4-10.4) 12/20/21 15:18 Neut % (Auto) 73.3 % 12/20/21 15:18 Lymph % (Auto) 17.9 % 12/20/21 15:18 [place] % (Auto) 7.9 % 12/20/21 15:18 Eos % (Auto) 0.3 % 12/20/21 15:18 Baso % (Auto) 0.3 % 12/20/21 15:18 Neut # (Auto) 7.11 10^3/uL (1.8-7.7) 12/20/21 15:18 Lymph # (Auto) 1.7 10^3/uL (0.8-4.8) 12/20/21 15:18 [place] # (Auto) 0.8 10^3/uL (0.2-0.9) 12/20/21 15:18 Eos # (Auto) 0.0 10^3/uL (0.0-0.8) 12/20/21 15:18 Baso # (Auto) 0.0 10^3/uL (0.0-0.1) 12/20/21 15:18 Nucleated RBC % (auto) 0 % 12/20/21 15:18 Nucleated RBCs # 0.0 /100WBC 12/20/21 15:18 Sodium 137 mmol/L (136-145) 12/20/21 15:18 Potassium 4.9 mmol/L (3.5-5.1) 12/20/21 15:18 Chloride 103 mmol/L (98-107) 12/20/21 15:18 Carbon Dioxide 23 mmol/L (22-29) 12/20/21 15:18 Anion Gap 15.9 (5-19) 12/20/21 15:18 BUN 31 mg/dL (8-23) H 12/20/21 15:18 Creatinine 1.0 mg/dL (0.7-1.2) 12/20/21 15:18 GFR Calculation 76.2 mL/min (90-130) L 12/20/21 15:18 Glucose 84 mg/dL (65-115) 12/20/21 15:18 Calculated Osmolality 290 mOsm/kg (285-295) 12/20/21 15:18 Calcium 9.1 mg/dL (8.5-10.5) 12/20/21 15:18 Total Bilirubin 0.3 mg/dL (0.15-1.2) 12/20/21 15:18 AST 12 U/L (0-40) 12/20/21 15:18 ALT 12 U/L (0-41) 12/20/21 15:18 Alkaline Phosphatase 91 U/L (40-130) 12/20/21 15:18 Troponin T Baseline 14 ng/L (0-15) 12/20/21 15:18 Total Protein 6.8 g/dL (6.6-8.7) 12/20/21 15:18 Albumin 4.3 g/dL (3.5-5.2) 12/20/21 15:18 Globulin 2.5 g/dL (1.3-4.6) 12/20/21 15:18 Discharge Plan Discharge Patient Disposition: Admitted As Inpatient Admit Provider: Skyler Freeman Clinical Impression: Acute coronary syndrome Condition: Stable Discharge Diet: Cardiac Discharge Activity: Limit activity as instructed Coding Level of Care Code ED Cad Designer Drafter for Chg Fwd Exam Detailed
[2021-12-20 15:53] LABS: Alanine Aminotransferase 12 U/L (0-41); Albumin Level 4.3 g/dL (3.5-5.2); Alkaline Phosphatase 91 U/L (40-130); Anion Gap 15.9 (5-19); Aspartate Amino Transferase 12 U/L (0-40); Blood Urea Nitrogen 31 mg/dL (8-23); Calcium 9.1 mg/dL (8.5-10.5); Carbon Dioxide 23 mmol/L (22-29); Chloride 103 mmol/L (98-107); Creatinine Clr Calc Pharmacy 84.5507; Globulin 2.5 g/dL (1.3-4.6); Glomerular Filtration Rate 76.2 mL/min (90-130); Glucose 84 mg/dL (65-115); Osmolality Calculated 290 mOsm/kg (285-295); Potassium 4.9 mmol/L (3.5-5.1); Sodium 137 mmol/L (136-145); Total Bilirubin 0.3 mg/dL (0.15-1.2); Total Protein 6.8 g/dL (6.6-8.7)
[2021-12-20 15:58] LABS: Troponin(5th) Baseline 14 ng/L (0-15)
[2021-12-20] MEDS: metoprolol tartrate 25 mg Tablet PO (17:25)
[2021-12-20] MEDS: OXcarbazepine 300 mg Tablet PO (17:25)
[2021-12-20] MEDS: sodium chloride 0.9% 1,000 ML 100 ML IV (17:25)
[2021-12-20 18:02] LABS: Troponin 5 2HR 52.48 ng/L (0-15)
[2021-12-20 18:14] LABS: Troponin 5 2HR Delta 38.48 ABS# (0-10)
[2021-12-20] MEDS: gabapentin 400 mg Capsule 800 MG PO (20:05)
[2021-12-20] MEDS: atorvastatin 40 mg Tablet PO (20:06)
--- NOTE | 2021-12-20 21:15 | PC.NURSE ---
TR Band Removed Upon shift change, TR band in place over right radial puncture site. 2 ml of air removed every 15-20 minutes. TR band removed entirely at 2115, clear dressing applied. No drainage or hematoma noted, pulse palpable, and color normal.
[2021-12-20 21:51] LABS: Troponin 5 6HR 17.97 ng/L (0-15)
[2021-12-20 22:14] LABS: Troponin 5 6HR Delta 3.97 ng/L (0-12)
[2021-12-21] VITALS (19 sets, daily range): BP systolic 116–152; BP diastolic 69–92; PULSE 67–89; RESP 13–19; TEMP 36.8–37.1; O2SAT 90–98; BMI 25.6
[2021-12-21] MEDS: sodium chloride 0.9% 1,000 ML 100 ML IV (03:32)
--- NOTE | 2021-12-21 08:13 | P.DS_ITS ---
Discharge Providers Date of Admission: 12/20/21 16:48 Date of Discharge: December 21, 2021 Attending Provider at Admission: Skyler Freeman MD Attending Provider at Discharge: Skyler Freeman MD Primary Care Provider: Aleah Padron MD Diagnoses at Discharge Discharge Diagnosis (1) Acute coronary syndrome: Status: Acute (2) Smoking: Status: Acute (3) CAD (coronary artery disease): Status: Acute Qualifiers: Coronary Disease-Associated Artery/Lesion type: yocha dehe artery [place] vs. transplanted heart: yocha dehe heart Associated angina: without angina Qualified Code(s): I25.10 - Atherosclerotic heart disease of yocha dehe coronary artery without angina pectoris (4) Tobacco abuse: Status: Acute (5) Hyperlipidemia: Status: Chronic Qualifiers: Hyperlipidemia type: mixed hyperlipidemia Qualified Code(s): E78.2 - Mixed hyperlipidemia (6) Benign hypertension: Status: Chronic Permanent problem details: Lisinopril DC due to low BP (7) Peripheral arterial disease: Status: Acute (8) Chronic headache: Status: Chronic Qualifiers: Headache type: tension-type Intractability: not intractable Qualified Code(s): G44.229 - Chronic tension-type headache, not intractable (9) CHF (congestive heart failure): Status: Chronic Qualifiers: Heart failure type: combined systolic and diastolic Heart failure ch ronicity: chronic Qualified Code(s): I50.42 - Chronic combined systolic (congestive) and diastolic (congestive) heart failure (10) Old anterior wall myocardial infarction: Status: Acute (11) Ischemic cardiomyopathy: Status: Acute Reason for Visit Reason for Visit: Shortness of breath Brief History: Patient was sent by ambulance from a clinic in [place] because of a abnormal EKG compared to previous tracings. He was short of breath. The concern was for an acute coronary syndrome. The EKG findings were that of a Wellens phenomenon with suggested either an acute coronary syndrome involving the LAD or previous myocardial infarction with aneurysmal formation of the anterior wall and apex. He was not having chest pain. Hospital Course Hospital Course Upon arrival the patient was hemodynamically stable and remained free of pain. His primary symptom was shortness of breath which began yesterday morning. Because of the rather dramatic change in his EKG I decided to perform coronary angiography in case he was having acute coronary syndrome involving the LAD. The angiogram revealed a chronic total occlusion of the proximal left anterior descending with good collateral flow from the right coronary artery. He also had some minor collateral flow from the diagonal and septal branches of the LAD. I did place a wire into the occlusion to see if it would open and it did not. His left ventriculogram revealed dyskinesis of the apex and some mild hypokinesis of the distal anterior wall. His overall ejection fraction is about 40%. The procedure was done from the right radial artery. There were no postprocedural complications and at the time of discharge the right radial artery area is flat, dry without hematoma or bleeding. In looking at the old notes his ARISTIDES inhibitor had been discontinued relatively recently because of hypotension. The lisinopril dose was 10 mg daily. My suspicion is the discontinuation of the afterload reducing agent contributed to yesterday's event. He most likely had some mild congestive heart failure and shortness of breath on this basis. The plan is to reinstitute the ARISTIDES inhibitor at a lower dose, 2.5 mg daily. The initial troponin was 14. Second troponin was 52 and the third troponin was 18. Physical Exam Narrative: GENERAL: In general he appears well HEENT: Exam within normal limits. NECK: Supple without jugular vein distention. The carotid upstroke is normal without bruits. BACK: Exam normal. LUNGS: Clear. HEART: Regular rate and rhythm. ABDOMEN: Benign without organomegaly or tenderness. EXTREMITIES: No edema. The right radial artery at the time of discharge is flat, dry without hematoma or bleeding. NEUROLOGIC: Exam normal. SKIN: Unremarkable. 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 Stat Exams 12/20/21 15:38 Completed Laboratory Results WBC 9.7 10^3/uL (4.0-10.0) 12/20/21 15:18 RBC 4.71 10^6/uL (4.1-5.3) 12/20/21 15:18 Hgb 14.8 g/dL (11.7-16.6) 12/20/21 15:18 Hct 45.0 % (42.0-52.0) 12/20/21 15:18 MCV 95.5 fl (80-94) H 12/20/21 15:18 MCH 31.4 pg (28.0-34.0) 12/20/21 15:18 MCHC 32.9 g/dL (30.0-36.0) 12/20/21 15:18 RDW 13.7 % (12.1-15.1) 12/20/21 15:18 Plt Count 267 10^3/cmm (130-400) 12/20/21 15:18 MPV 9.6 fL (7.4-10.4) 12/20/21 15:18 Neut % (Auto) 73.3 % 12/20/21 15:18 Lymph % (Auto) 17.9 % 12/20/21 15:18 Swain % (Auto) 7.9 % 12/20/21 15:18 Eos % (Auto) 0.3 % 12/20/21 15:18 Baso % (Auto) 0.3 % 12/20/21 15:18 Neut # (Auto) 7.11 10^3/uL (1.8-7.7) 12/20/21 15:18 Lymph # (Auto) 1.7 10^3/uL (0.8-4.8) 12/20/21 15:18 Swain # (Auto) 0.8 10^3/uL (0.2-0.9) 12/20/21 15:18 Eos # (Auto) 0.0 10^3/uL (0.0-0.8) 12/20/21 15:18 Baso # (Auto) 0.0 10^3/uL (0.0-0.1) 12/20/21 15:18 Nucleated RBC % (auto) 0 % 12/20/21 15:18 Nucleated RBCs # 0.0 /100WBC 12/20/21 15:18 Sodium 137 mmol/L (136-145) 12/20/21 15:18 Potassium 4.9 mmol/L (3.5-5.1) 12/20/21 15:18 Chloride 103 mmol/L (98-107) 12/20/21 15:18 Carbon Dioxide 23 mmol/L (22-29) 12/20/21 15:18 Anion Gap 15.9 (5-19) 12/20/21 15:18 BUN 31 mg/dL (8-23) H 12/20/21 15:18 Creatinine 1.0 mg/dL (0.7-1.2) 12/20/21 15:18 GFR Calculation 76.2 mL/min (90-130) L 12/20/21 15:18 Glucose 84 mg/dL (65-115) 12/20/21 15:18 Calculated Osmolality 290 mOsm/kg (285-295) 12/20/21 15:18 Calcium 9.1 mg/dL (8.5-10.5) 12/20/21 15:18 Total Bilirubin 0.3 mg/dL (0.15-1.2) 12/20/21 15:18 AST 12 U/L (0-40) 12/20/21 15:18 ALT 12 U/L (0-41) 12/20/21 15:18 Alkaline Phosphatase 91 U/L (40-130) 12/20/21 15:18 Troponin T Baseline 14 ng/L (0-15) 12/20/21 15:18 Troponin T 120 Minute 52.48 ng/L (0-15) H 12/20/21 17:25 Delta Troponin T 38.48 ABS# (0-10) H* 12/20/21 17:25 Troponin T Hi Sens 6Hr 17.97 ng/L (0-15) H 12/20/21 21:06 Troponin T Hi Sens 6Hr Delta 3.97 ng/L (0-12) 12/20/21 21:06 Total Protein 6.8 g/dL (6.6-8.7) 12/20/21 15:18 Albumin 4.3 g/dL (3.5-5.2) 12/20/21 15:18 Globulin 2.5 g/dL (1.3-4.6) 12/20/21 15:18 Procedures Performed Left heart catheterization, coronary angiography, left ventriculography. Vitals Last Vital Signs Temp 98.5 F 12/21/21 03:30 Pulse 75 12/21/21 06:00 Resp 18 12/21/21 06:00 BP 152/92 12/21/21 06:00 Pulse Ox 92 12/21/21 06:00 O2 Del Method 12/21/21 06:00 Discharge Plan Discharge Patient Disposition: Home Condition: Stable Prescriptions: New lisinopril 2.5 mg tablet 2.5 mg PO DAILY Qty: 90 3RF Continued coenzyme Q10 200 mg capsule 200 mg PO DAILY fluticasone propionate [Flonase Allergy Relief] 50 mcg/actuation spray,stewart spension 1 spray INTRANASAL BID PRN (Reason: Allergy Symptoms) ferrous sulfate 140 mg (45 mg iron) tablet extended release 140 mg PO DAILY nitroglycerin 0.4 mg tablet, sublingual 0.4 mg SUBLINGUAL Q5M PRN (Reason: Chest Pain) aspirin 325 mg tablet 325 mg PO DAILY amitriptyline 10 mg tablet 20 mg PO DAILY acetaminophen-codeine 300-30 mg tablet 1 tab PO Q6H PRN (Reason: pain) Qty: 15 0RF fenofibric acid (choline) 135 mg capsule,delayed release(DR/EC) 135 mg PO DAILY 90 Days Qty: 90 3RF nystatin 100,000 unit/gram powder 1 applic topical DAILY Qty: 60 0RF Rx Instructions: after shower and drying off for prevention gabapentin 800 mg tablet 800 mg PO TID 90 Days Qty: 270 1RF isosorbide mononitrate 30 mg tablet extended release 24 hr 30 mg PO DAILY 90 Days Qty: 90 1RF metoprolol tartrate 25 mg tablet 25 mg PO BID 90 Days Qty: 180 1RF tizanidine 4 mg capsule 4 mg PO BID vitamin [id number] B1 1,000-100 mg/mL solution 1 ml IM Q30D Rx Instructions: 1000mcg/ml every day for 7 days starting 10/05/21, then 1000mcg/ml once weekly for 4 weeks, then 1000mcg/ml once monthly thereafter Meds sent in by patient neuologist Men's Multi-Vitamin Tablet 1 tab PO DAILY oxcarbazepine 300 mg tablet 300 mg PO BID Calcium + D 600 mg-5 mcg (200 unit) Tablet 1 tab PO DAILY Crestor 10 mg tablet 10 mg PO BEDTIME Discharge Orders: Discharge Order (Routine); Ordered 12/21/21 Ordered By: Skyler Freeman Discharge Diet: Cardiac Discharge Activity: Limit activity as instructed Patient Instructions: Opioid Safety Activity Restrictions/Additional Instructions: No lifting over 5 pounds with the right arm for 2 days. Discharge Attestations Time Spent in Discharge Care*: greater than 30 min Quality Metrics Clinical Quality Measures [ No reported AMI, CVA or VTE this stay] Coding Level of Care Code Established Pt Acute Chg FW DC note Patient Type Established History Detailed Exam Detailed Medical Decision Making Moderate Complexity Diagnoses Acute coronary syndrome I24.9 Smoking F17.200 CAD (coronary artery disease) I25.10 Coronary Disease-Associated Artery/Lesion type: yocha dehe artery [place] vs. transplanted heart: yocha dehe heart Associated angina: without angina Tobacco abuse Z72.0 Hyperlipidemia E78.2 Hyperlipidemia type: mixed hyperlipidemia Benign hypertension I10 Peripheral arterial disease I73.9 Chronic headache G44.229 Headache type: tension-type Intractability: not intractable CHF (congestive heart failure) I50.42 Heart failure type: combined systolic and diastolic Heart failure chronicity: chronic Old anterior wall myocardial infarction I25.2 Ischemic cardiomyopathy I25.5
[2021-12-21] MEDS: multivitamin therapeutic Tablet 1 TAB PO (09:46)
[2021-12-21] MEDS: aspirin 81 mg EC Tablet PO (09:46)
[2021-12-21] MEDS: isosorbide mononitrate ER 30 mg Tablet PO (09:46)
[2021-12-21] MEDS: OXcarbazepine 300 mg Tablet PO (09:46)
[2021-12-21] MEDS: gabapentin 400 mg Capsule 800 MG PO (09:46)
[2021-12-21] MEDS: metoprolol tartrate 25 mg Tablet PO (09:46)
--- NOTE | 2021-12-21 10:23 | PC.CHAP ---
Pastoral Care Encounter/Spiritual Assessment Type of Contact [] Declined inspector missile visit [] Patient/Family/Request visit [] Outpatient visit [] Follow-up visit [] Physician referral [] Code/Alert [x] Routine visit [] Staff referral [] Actively dying [] Patient sleeping [] Family support [] [] Out of room [] Palliative care [] [] Receiving care in room [] Pre-surgical visit [] Trauma [] Long length of stay [x] ICU visit [x] Other: preparing to go home... Relational/Emotional Strength [] Patient feels connected with others/family/visitors/staff [] Distress [] Loneliness/isolation [] Abandonment Spirituality of Patient [] Person of Kiersten [] Attends Jewish of their Kiersten [] Believes in Prayer [] Reads Bible or Sabianism materials [] There are Spiritual issues to be addressed Sanitation Engineer Interventions [x] Prayer [] Active listening [] Non-anxious presence [] Spiritual/emotional support [] Crisis/trauma care [] Spiritual counseling [] Bereavement support [] Provided bereavement packet [] Provided Bible/devotional materials [] Provided toy/stuffed animal, coloring book to patient or family member [] Provided Communion [] Anointing/[place] [] Salvation [x] Completed spiritual assessment [] Other: Impact on Illness or Injury [] Angry [] Fearful [] Anxious [] Often cries [] Exhaustion [] Unable to work [] Unable to attend voodoo [] Unable to walk/stand [] Unable to read [] Unable to drive [] Unable to eat/drink [] Unable to sleep [] Unable to be with family [] Patient intubated [] Other: Summary Time spent with patient
--- NOTE | 2021-12-21 10:36 | PC.NURSE ---
Patient left with family member via wheelchair to personal vehicle at 1035. All discharge education provided to patient at bedside. Patient and family had no questions.
== END 2021-12-21 10:35 | disposition home or self-care (01) ==
LOC: ER 15:24 → CCL 15:56 → ER 17:14 → ICU 17:51
PROVIDERS: Admitting Provider Internal Medicine Cardiovascular Disease; Emergency Provider Family Medicine; PCP Family Medicine; Visit Provider Internal Medicine Cardiovascular Disease
DX: I24.9 Acute ischemic heart disease, unspecified (principal); R07.89 Other chest pain; I25.10 Atherosclerotic heart disease of native coronary artery without angina pectoris; I25.2 Old myocardial infarction; I50.42 Chronic combined systolic (congestive) and diastolic (congestive) heart failure; J44.9 Chronic obstructive pulmonary disease, unspecified; I10 Essential (primary) hypertension; E78.2 Mixed hyperlipidemia; G44.229 Chronic tension-type headache, not intractable; I73.9 Peripheral vascular disease, unspecified; F17.210 Nicotine dependence, cigarettes, uncomplicated; Z95.5 Presence of coronary angioplasty implant and graft
CPT/HCPCS: 80053; 84484; 85025; 93005; 93458; 96360; 96374; 99152; 99153; 99285; C1769; C1887; C1894; G0378; J1644; J2250; J3010; J3490; J7030; Q9967

== ENCOUNTER → 2021-12-29 15:24 | Outpatient (BNVA) | payer MEDICARE, MEDICAID, SELFPAY | PROVIDERS: PCP Family Medicine; Visit Provider Nurse Practitioner Family | DX: I25.5 Ischemic cardiomyopathy (principal); F17.210 Nicotine dependence, cigarettes, uncomplicated | CPT/HCPCS: 80048; 99213; 99214 ==

== ENCOUNTER → 2022-02-23 14:25 | Outpatient (BNVA) | payer MEDICARE, MEDICAID, SELFPAY | PROVIDERS: PCP Family Medicine; Visit Provider Internal Medicine Cardiovascular Disease | DX: R06.02 Shortness of breath (principal); I25.10 Atherosclerotic heart disease of native coronary artery without angina pectoris; I11.0 Hypertensive heart disease with heart failure; I50.42 Chronic combined systolic (congestive) and diastolic (congestive) heart failure; I25.5 Ischemic cardiomyopathy; I73.9 Peripheral vascular disease, unspecified; Z95.828 Presence of other vascular implants and grafts; F17.210 Nicotine dependence, cigarettes, uncomplicated; I25.2 Old myocardial infarction | CPT/HCPCS: 99214 ==

== ENCOUNTER → 2022-03-02 10:21 | Outpatient (BNVA) | payer MEDICARE, MEDICAID, SELFPAY | PROVIDERS: PCP Family Medicine; Visit Provider Internal Medicine Cardiovascular Disease | DX: I24.9 Acute ischemic heart disease, unspecified (principal); I25.5 Ischemic cardiomyopathy; I50.42 Chronic combined systolic (congestive) and diastolic (congestive) heart failure; I73.9 Peripheral vascular disease, unspecified; I50.9 Heart failure, unspecified; I10 Essential (primary) hypertension; I25.10 Atherosclerotic heart disease of native coronary artery without angina pectoris | CPT/HCPCS: 80048; 83735; 83880 ==

== ENCOUNTER 2022-03-30 06:28 | Outpatient (CLI) | payer MEDICARE, MEDICAID, SELFPAY ==
--- NOTE | 2022-03-30 07:00 | USR_ITS ---
PROCEDURE INFORMATION: Exam: US Duplex Lower Extremity Arteries Exam date and time: 03/30/2022 6:39 AM Age: 62 years old Clinical indication: Claudication. Prior fem-fem bypass. Peripheral artery disease/intermittent claudication. TECHNIQUE: Imaging protocol: Real-time ultrasound scan of the arteries of the bilateral lower extremities with 2-D escobedo scale, color Doppler flow and spectral waveform analysis. Images documented and saved. COMPARISON: CT abdomen pelvis wo/w [id number] 10/07/2021 11:50 AM FINDINGS: Monophasic waveforms are seen throughout the lower extremities bilaterally. A fem-fem bypass graft is occluded. RIGHT: The peak systolic velocity in the right iliac artery is 209 cm/s. The peak systolic velocity within the right common femoral artery is 139 cm/s. The peak systolic velocity within the proximal right femoral artery is 21 cm/s. The peak systolic velocity within the mid right femoral artery is 4 cm/s. The peak systolic velocity within the distal right femoral artery is 11 cm/s. The peak systolic velocity within the right popliteal artery is 28 cm/s. The peak systolic velocity within the right posterior tibialis artery is 26 cm/s. The peak systolic velocity within the right dorsalis pedis artery is 20 cm/s. The right ankle-brachial index is 0.8. The right toe brachial index is. 0.8. LEFT: The peak systolic velocity in the left iliac artery is 91 cm/s. The peak systolic velocity within the left common femoral artery is 31 cm/s. The peak systolic velocity within the proximal left femoral artery is 51 cm/s. The peak systolic velocity within the mid left femoral artery is 52 cm/s. The peak systolic velocity within the distal left femoral artery is 37 cm/s. The peak systolic velocity within the left popliteal artery is 26 cm/s. The peak systolic velocity within the left posterior tibialis artery is 16 cm/s. The peak systolic velocity within the left dorsalis pedis artery is 32 cm/s. The left ankle-brachial index is 0.6. The left toe brachial index is 0.6. US/[place] [id number] IMPRESSION: 1. Occluded fem-fem bypass. 2. Reduced flow velocities in the femoral artery with near occlusion. 3. Elevated flow velocity in the right iliac artery suggesting between 50 and 75% stenosis. 4. The right ankle-brachial and toe brachial indices are 0.8. 5. The left ankle brachial and toe brachial indices are 0.6. 6. Monophasic waveforms are seen throughout the lower extremities bilaterally.
== END 2022-03-30 06:29 | disposition home or self-care (01) ==
LOC: RAD 06:30
PROVIDERS: PCP Family Medicine; Visit Provider Internal Medicine Cardiovascular Disease
DX: I73.9 Peripheral vascular disease, unspecified (principal); Z95.828 Presence of other vascular implants and grafts
CPT/HCPCS: 93925

== ENCOUNTER → 2022-04-05 11:40 | Outpatient (BNVA) | payer MEDICARE, MEDICAID, SELFPAY | PROVIDERS: PCP Family Medicine; Visit Provider Emergency Medicine | DX: R68.89 Other general symptoms and signs (principal); J98.8 Other specified respiratory disorders; B97.89 Other viral agents as the cause of diseases classified elsewhere | CPT/HCPCS: 87400 ==

== ENCOUNTER 2022-05-16 14:21 | Outpatient (CLI) | payer MEDICARE, MEDICAID, SELFPAY ==
--- NOTE | 2022-05-16 14:30 | CTR_ITS ---
PROCEDURE INFORMATION: Exam: CTA Abdominal Aorta and Bilateral Lower Extremities (Run-off) With Contrast Exam date and time: 05/16/2022 2:45 PM Age: 62 years old Clinical indication: Condition or disease; Peripheral vascular disease; Additional info: Pad TECHNIQUE: Imaging protocol: Computed tomographic angiography of the of the abdominal aorta, pelvis and bilateral lower extremities with contrast. 3D rendering (Not supervised by radiologist): MIP and/or 3D reconstructed images were created by the technologist. Radiation optimization: All CT scans at this facility use at least one of these dose optimization techniques: automated exposure control; mA and/or kV adjustment per patient size (includes targeted exams where dose is matched to clinical indication); or iterative reconstruction. Contrast material: OMNI 350; Contrast volume: 95 ml; Contrast route: INTRAVENOUS (IV); COMPARISON: CT abdomen pelvis wo/w [id number] 10/07/2021 11:50 AM RADIATION DOSE METRICS: Total DLP (mGy-cm): 660.55 FINDINGS: Aorta: There is moderate calcific and noncalcific plaque in the abdominal aorta. There is approximately 50% stenosis of the aortic lumen distally. Patent luminal diameter is 15 x 13 mm. Celiac trunk and mesenteric arteries: The superior mesenteric, celiac, and inferior mesenteric arteries are widely patent. Renal arteries: There is mild calcific plaque without significant stenosis in both renal arteries. Right iliac arteries: There is a widely patent stent in the right external iliac artery. There is moderate calcific plaque without stenosis in the right common iliac artery. The right internal iliac artery is occluded. Right femoral/popliteal arteries: There is less than 50% stenosis in the right common femoral artery. The right superficial femoral artery is patent over a 2.4 cm segment beyond its origin. The artery is then occluded over a 6 cm segment beyond which the vessel is very small but patent. There is moderate calcific plaque distally. No occlusion distally. The popliteal artery is patent and relatively normal in size as it receives collateral flow from large profundus femoris muscular collaterals. Right infrapopliteal arteries: There is patent 3 vessel runoff to the right foot. Left iliac arteries: The left common iliac artery is occluded. The left external iliac artery is occluded. There is a stent in the proximal left external iliac artery. The left internal iliac artery is occluded. Left femoral/popliteal arteries: The left common femoral artery is reconstituted by inferior epigastric and lateral abdominal wall collaterals. There is mild calcific plaque without stenosis in the relatively small left common femoral artery. The left superficial femoral artery is widely patent. There is mild calcific plaque distally without significant stenosis. The left popliteal artery is normal. Left infrapopliteal arteries: There is patent 3 vessel runoff to the left foot. Other arteries: There is an occluded femoral to femoral bypass graft. Lungs: There is mild subpleural reticular and ground-glass opacity in the lower lobes, similar to 10/07/2021. Heart: There is focal thinning and hypoenhancement of the left apical left ventricular apical myocardium and left ventricular apical aneurysm similar to 10/07/2021. Liver: The liver is normal. Gallbladder and bile ducts: The gallbladder is normal. There is no biliary dilation. Pancreas: The pancreas is unremarkable. Spleen: Splenic size is normal. There are scattered calcifications consistent with healed granulomas. Adrenal glands: The adrenal glands are unremarkable. Kidneys and ureters: The kidneys are unremarkable. No hydronephrosis or stones. No ureteral dilation. Stomach and bowel: The stomach is unremarkable. The small bowel is nondilated. The colon is unremarkable. Gastric fundoplication noted. Appendix: The appendix is normal. Urinary bladder: The urinary bladder is unremarkable. Reproductive: The prostate and seminal vesicles are unremarkable. Intraperitoneal space: There is no free air or significant intraperitoneal free fluid. Lymph nodes: There is no lymphadenopathy in the retroperitoneum, mesentery, pelvis or inguinal regions. Bones/joints: There is mild degenerative disease in the lower lumbar spine. There is intact posterolateral and interbody fusion at L5-S1. The pelvis and hips are unremarkable. There is a 1st metatarsophalangeal joint arthroplasty on the right. Soft tissues: There are small bilateral fat containing inguinal hernias. CT/CT angio abd aorta runof [id number] IMPRESSION: 1. 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 2. Chronic occlusion of a 6 cm segment of the proximal right superficial femoral artery, stable since 10/07/2021. There is a patent but diminutive mid to distal right femoral artery. 3. Muscular collaterals reconstitute a patent right popliteal artery and there is 3 vessel runoff to the right foot. 4. Patent left common and superficial femoral arteries with less than 50% stenosis. Patent left popliteal artery and three-vessel runoff to the left foot. 5. Chronically occluded femoral to femoral bypass graft. 6. 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 7. Subpleural reticular and ground-glass opacity in both lower lobes, similar to 10/07/2021 suggesting mild chronic interstitial lung disease. 8. 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 9. Incidental findings above.
[2022-05-16] MEDS: iohexol 350 mg/mL 500 mL Btl (per mL) IV (14:58)
== END 2022-05-16 14:22 | disposition home or self-care (01) ==
PROVIDERS: PCP Family Medicine; Visit Provider Internal Medicine Cardiovascular Disease
DX: I73.9 Peripheral vascular disease, unspecified (principal); Z95.828 Presence of other vascular implants and grafts
CPT/HCPCS: 75635; Q9967

== ENCOUNTER → 2022-06-15 09:17 | Outpatient (BNVA) | payer MEDICARE, MEDICAID, SELFPAY | PROVIDERS: PCP Family Medicine; Visit Provider Family Medicine | DX: I10 Essential (primary) hypertension (principal); G62.9 Polyneuropathy, unspecified; E78.5 Hyperlipidemia, unspecified; M54.12 Radiculopathy, cervical region; I50.42 Chronic combined systolic (congestive) and diastolic (congestive) heart failure; I25.10 Atherosclerotic heart disease of native coronary artery without angina pectoris; G63 Polyneuropathy in diseases classified elsewhere; I73.9 Peripheral vascular disease, unspecified; E78.2 Mixed hyperlipidemia | CPT/HCPCS: 80048; 80061; 85025 ==

== ENCOUNTER → 2022-06-20 09:36 | Outpatient (BNVA) | payer MEDICARE, MEDICAID, SELFPAY | PROVIDERS: PCP Family Medicine; Visit Provider Family Medicine | DX: M54.12 Radiculopathy, cervical region (principal) | CPT/HCPCS: 72040 ==

== ENCOUNTER → 2022-06-23 09:45 | Outpatient (BNVA) | payer MEDICARE, MEDICAID, SELFPAY | PROVIDERS: PCP Family Medicine; Visit Provider Nurse Practitioner Family | DX: I73.9 Peripheral vascular disease, unspecified (principal); F17.210 Nicotine dependence, cigarettes, uncomplicated | CPT/HCPCS: 99214 ==

== ENCOUNTER → 2022-07-13 09:51 | Outpatient (BNVA) | payer MEDICARE, MEDICAID, SELFPAY | PROVIDERS: PCP Family Medicine; Visit Provider Family Medicine | DX: I10 Essential (primary) hypertension (principal); M79.671 Pain in right foot | CPT/HCPCS: 73620 ==

== ENCOUNTER → 2022-08-03 10:43 | Outpatient (BNVA) | payer MEDICARE, MEDICAID, SELFPAY | PROVIDERS: PCP Family Medicine; Visit Provider Podiatrist Foot & Ankle Surgery | DX: M76.821 Posterior tibial tendinitis, right leg (principal) | CPT/HCPCS: 73630; 99213 ==

== ENCOUNTER → 2022-10-24 15:26 | Outpatient (BNVA) | payer MEDICARE, MEDICAID, SELFPAY | PROVIDERS: PCP Family Medicine; Visit Provider Internal Medicine Cardiovascular Disease | DX: I73.9 Peripheral vascular disease, unspecified (principal); I11.0 Hypertensive heart disease with heart failure; I50.42 Chronic combined systolic (congestive) and diastolic (congestive) heart failure; I25.10 Atherosclerotic heart disease of native coronary artery without angina pectoris; I25.5 Ischemic cardiomyopathy; Z95.828 Presence of other vascular implants and grafts; F17.200 Nicotine dependence, unspecified, uncomplicated | CPT/HCPCS: 99214 ==

== ENCOUNTER → 2022-11-02 11:18 | Outpatient (BNVA) | payer MEDICARE, MEDICAID, SELFPAY | PROVIDERS: PCP Family Medicine; Visit Provider Family Medicine | DX: G62.9 Polyneuropathy, unspecified (principal); I10 Essential (primary) hypertension; G63 Polyneuropathy in diseases classified elsewhere; K04.7 Periapical abscess without sinus | CPT/HCPCS: 80048; 83735 ==

== ENCOUNTER → 2023-05-11 12:50 | Outpatient (BNVA) | payer MEDICARE, MEDICAID, SELFPAY | PROVIDERS: PCP Family Medicine; Visit Provider Internal Medicine Cardiovascular Disease | DX: I25.10 Atherosclerotic heart disease of native coronary artery without angina pectoris (principal); Z95.828 Presence of other vascular implants and grafts; E78.2 Mixed hyperlipidemia; I11.0 Hypertensive heart disease with heart failure; I50.42 Chronic combined systolic (congestive) and diastolic (congestive) heart failure; Z72.0 Tobacco use; I73.9 Peripheral vascular disease, unspecified; I25.2 Old myocardial infarction; I25.5 Ischemic cardiomyopathy; I24.9 Acute ischemic heart disease, unspecified | CPT/HCPCS: 99214 ==

== ENCOUNTER 2023-05-19 08:50 | Outpatient (CLI) | payer MEDICARE, MEDICAID, SELFPAY ==
--- NOTE | 2023-05-19 | ECG_ITS ---
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 Interpretive Statements NAME OF STUDY: LEXISCAN SESTAMIBI STRESS TEST INDICATION: Chest Pain, SOB, PROCEDURE: At the baseline, the EKG revealed normal sinus rhythm with the features of old inferior and anterolateral wall myocardial infarction. The baseline heart was 61 bpm with a blood pressue of 150/88 mm of Hg Lexiscan was infused over a period of 20 seconds. A total of 0.4 milligrams of Lexiscan was infused. The stress phase was continued for a total of 5 minutes. Heart rate at the end of the stress phase was 75 bpm with a blood pressure 139/84 mm of Hg. The EKG at the peak infusion revealed no significant changes. Sestamibi was injected 20 seconds after the Lexiscan infusion. Heart rate at the end of the recovery phase was 72 bpm with a blood pressure of 147/88 mm of Hg. CONCLUSION: 1. No significant EKG changes with the LexiScan infusion 2. No LexiScan induced chest pain or cardiac arrhythmia 3. Normal blood pressure and heart rate response 4. Sestamibi/sestamibi perfusion scan pending; see separate report. Electronically Signed On 05-21-2023 21:20:51 MARKETING TEACHER by Genesis Calles M.D. [email or web address]
[2023-05-19 09:03] VITALS: BMI 27.2
--- NOTE | 2023-05-19 09:04 | NMCV_ITS ---
NM car perf SPECT r/s* [id number] MillerYunier Age: 63 Gender: M : 1960 Exam Date: 05/19/2023 09:04 Ordering Phys: Skyler Freeman MD ([email or web address]) Technologist: KIANNA Caceres Exam Location: [facility] Indications: ATHEROSCLEROTIC HEART DISEASE STRESS TEST Please see separate stress test report in [facility] for full findings IMAGE PROTOCOL Rest/Stress 1 Lexiscan Day Radiopharmaceutical Dose (mCi) Administration Site Administered by Rest: Tc-99m 11.0 IV KIANNA Caceres Sestamibi Stress:Tc-99m 32.6 IV KIANNA Peralta Sestamibi Rest: 19-May-2023 60 Discovery 630 Stress: 19-May-2023 30 Discovery 630 0.4mg Lexiscan. Images obtained in supine and prone position. SPECT RESULTS Technical Quality: Excellent Raw Data Analysis: Normal Image Corrections: No attenuation or motion correction applied Summed Stress Score: 31 Summed Rest Score: 23 Summed Difference Score: 9 PERFUSION FINDINGS Large area of moderate to severely decreased tracer uptake involving the basal, mid and apical inferior; basal and mid inferolateral, mid and apical anterior, mid anteroseptal, mid inferoseptal ,apical septal, apical lateral and LV apex. Significant reversibility was noted in the inferior, inferoseptal, anteroseptal and lateral regions. FUNCTIONAL RESULTS (calculated via Gated SPECT) Stress Image LV EF (%): 37 Stress EDV (mL):189 TID: 1.08 Stress ESV (mL):119 FUNCTIONAL FINDINGS: Segmental wall motion analysis revealed diffuse hypokinesia of the left ventricle . LV cavity appears to be moderately dilated with an end-systolic volume of 119 mL IMPRESSIONS 1. Myocardial perfusion imaging revealing large area of moderate to severely decreased tracer uptake involving the inferior, inferolateral, anterior, anteroseptal, inferoseptal and apical regions with significant reversibility suggesting ischemia involving mostly the distribution of the right coronary artery and the left circumflex artery with some involvement of the left anterior descending artery. 2. Diminished LV ejection fraction of 37% 3. Segmental wall motion analysis revealed diffuse hypokinesia of the left ventricle. 4. Moderately dilated LV cavity with an end-systolic volume of 119 ml. No similar previous studies are available for comparison Dr Genesis Calles MD FACC (Electronically Signed) Final Date: 19 May 2023 11:53 S
[2023-05-19] MEDS: regadenoson 0.4 Mg/5 ml Syringe 0.400000000000000022 MG IVP (10:28)
[2023-05-19 10:36] VITALS: BP 147/88; PULSE 72
== END 2023-05-19 08:51 | disposition home or self-care (01) ==
LOC: CDL 08:51
PROVIDERS: PCP Family Medicine; Visit Provider Internal Medicine Cardiovascular Disease
DX: I25.10 Atherosclerotic heart disease of native coronary artery without angina pectoris (principal); I51.7 Cardiomegaly; R07.9 Chest pain, unspecified; R06.02 Shortness of breath
CPT/HCPCS: 36415; 78452; 93017; 96374; 99214; A9500; J2785

== ENCOUNTER → 2023-05-24 09:12 | Outpatient (BNVA) | payer MEDICARE, MEDICAID, SELFPAY | PROVIDERS: PCP Family Medicine; Visit Provider Family Medicine | DX: I10 Essential (primary) hypertension (principal); I25.10 Atherosclerotic heart disease of native coronary artery without angina pectoris; I50.42 Chronic combined systolic (congestive) and diastolic (congestive) heart failure; G63 Polyneuropathy in diseases classified elsewhere; E78.2 Mixed hyperlipidemia | CPT/HCPCS: 80053; 80061; 85025 ==

== ENCOUNTER 2023-06-05 09:59 | Outpatient (CLI) | payer MEDICARE, MEDICAID, SELFPAY ==
[2023-06-05 10:42] LABS: Basophils % 0.4 %; Eosinophils # 0.1 10^3/uL (0.0-0.8); Eosinophils % 1.2 %; Hematocrit 47.1 % (37-53); Lymphocytes # 2.1 10^3/uL (0.8-4.8); Lymphocytes % 25.7 %; Mean Corpuscular HGB Conc 32.9 g/dL (30-55); Mean Corpuscular Hemoglobin 32.4 pg (27-33); Mean Corpuscular Volume 98.3 fl (82-101); Mean Platelet Volume 9.2 fL (7.4-10.4); Monocytes # 0.5 10^3/uL (0.2-0.9); Monocytes % 5.5 %; Neutrophils # 5.56 10^3/uL (1.8-7.7); Nucleated Red Blood Cells % 0 %; Platelet Count 277 10^3/cmm (157-399); Red Blood Count 4.79 10^6/uL (3.85-5.65); Red Cell Distribution Width 15.1 % (12.1-15.1)
[2023-06-05 10:54] LABS: INR 1.21 (0.83-1.21); Prothrombin Time (Patient) 15.7 Seconds (12.0-15.1)
[2023-06-05 11:14] LABS: NT Pro B Type Natriuretic Pept 335 pg/mL (0-125)
== END 2023-06-05 10:00 | disposition home or self-care (01) ==
LOC: LAB 10:00
PROVIDERS: PCP Family Medicine; Visit Provider Internal Medicine Cardiovascular Disease
DX: I25.5 Ischemic cardiomyopathy (principal); I50.42 Chronic combined systolic (congestive) and diastolic (congestive) heart failure; I73.9 Peripheral vascular disease, unspecified
CPT/HCPCS: 36415; 83880; 85025; 85610

== ENCOUNTER 2023-06-08 09:27 | Observation (INO) | payer MEDICARE, MEDICAID, SELFPAY ==
[2023-06-08] VITALS (46 sets, daily range): BP systolic 112–154; BP diastolic 71–97; PULSE 54–69; RESP 12–23; TEMP 36.4–37.1; O2SAT 75–100
--- NOTE | 2023-06-08 07:30 | XACV_ITS ---
Ht: 178 cm Wt: 86 kg BSA: 2.08 m2 Gender: Male : 1960 Any Known Allergies: No known allergies Exam Priority: Routine Indication(s): - CAD - Abnormal stress perfusion study Procedure(s): Procedure Description: Diagnostic procedure Procedure Description: PCI procedure Procedure Description: Left Heart Catheterization Procedure Description: Left ventriculography Procedure Description: PTCA Procedure Description: Coronary Angiography Pete JUAREZ; Diagnostic Cath Status: Elective Diagnostic Findings * Patient with coronary artery disease and occluded LAD with stents in the right coronary artery presents to the office with worsening accelerating chest discomfort. Stress testing revealed a defect in all 3 distributions, most notably now in the circumflex and right coronary artery distributions. He was recommended for angiography. * Initially, I made an attempt to proceed through the right radial artery especially given his previous aortobifemoral bypass surgery. There was no right radial pulse. Ultrasound revealed a tiny vessel which probably was the right radial artery. There was no pulsations in the artery and Doppler flow could not identify any flow in the artery. Patient has significant scarring in both groins from his aortobifem but did have a mild 1+ pulse there. With some trepidation I was able to enter the right common femoral artery. Sheath was placed with difficulty due to the scar tissue. The procedure was completed via this entry site. * Coronary angiography reveals right coronary artery dominance. The left main coronary artery is normal and bifurcates into the LAD and circumflex. The LAD is occluded in the proximal portion. There is a proximal diagonal branch and a proximal septal branch which were noted previously. Circumflex is a relatively small vessel and gives off 2 marginal branches. There is also a left atrial recurrent branch. There are no significant lesions here. The circumflex primarily gives collateral flow to the distal right coronary artery. There are also some collaterals from the septal branch of the LAD. The mid and distal LAD is collateralized from bridging collaterals from the diagonal and to a mild degree from the circumflex as well. The right coronary artery is stented from the ostium to just past the acute margin. There is significant in-stent restenosis in the proximal portion up to 95% and in the midportion up to 95%. These are lengthy in-stent restenosis areas. The distal vessel however appears normal and is patent.. PCI Status: Elective PCI LVEF Assessed: No PCI Indication: New Onset Angina <= 2 months Interventional Findings * A wire was easily placed down the vessel. A long 27 mm x 3.5 mm noncompliant balloon was used to angioplasty and the entire stented area. There was a very good angiographic result. I was reluctant to place more stents given the size of the vessel. The end result was quite good with excellent CHANEL-3 flow.. Decision for PCI with Surgical Consult: No PCI for Multi-vessel Disease: No Conclusions 1. Chronic total occlusion of the proximal LAD. In-stent restenosis of the right coronary artery undergoes angioplasty with a noncompliant balloon with good angiographic result. Recommendations * Continued medical therapy. If repeated angioplasty fails, he would be a candidate for coronary bypass surgery. Interventional RX Recommendation: medical therapy and/or counseling Diagnostic RX Recommendation: medical therapy and/or counseling Anticoagulation: Heparin Pressures Phase:Rest AO : 90 / 51 ( 67 ) @ 8:57:00 AM Clinical Evaluation EBL: 5mL-10mL Procedural Details Procedure Consent Obtained. Current Diagnosis : Chest Pain. Admit Source: Out Patient. Pre-Procedure Time Out. Identified patient by full name and date of as verbalized by the patient/guarantor. Does the consent match the physician's order: Yes. Accurate & Complete Informed Consent: Yes. Inpatient/Outpatient History & Physical on Chart: Yes. If H&P is completed, is and addenduem needed: No; If yes, is the addendum complete: N/A. Visualize and Verify Site with Patient/Guarantor: N/A. Relevant Radiology Images available: N/A. The risks, benefits, and alternatives of sedation and/or procedure were discussed by physician. The patient agrees to continue. Procedure started. [facility] Clinical Fraility Score: 3: Managing Well. Calibration Tester Indications: Stable Known CAD; ABNORMAL STRESS TEST. Chest Pain Symptom Assessment: Atypical Angina. Cardiovascular Instability: N/A, stable. Correct patient, site and procedure confirmed by cath team. Current diagnosis: Chest Pain; Abnormal stress test; CAD. PERRLA. Strong, equal hand agri business agent bilaterally. Lungs clear x 5 lobes. IV Site on Arrival: 20 gauge in the right anticubital. IV Site on Arrival: 20 gauge in the left anticubital. IV Fluids: 0.9% NaCl at KVO. 0 mL infused prior to phlebotomy lab assistant. Pre Procedural Pulses: bilateral posterior tibial was Doppled. Pre Procedural Pulses: bilateral dorsalis pedis was Doppled. Pre Procedural Pulses: bilateral radial was 1+. Oxygen started at 3liters/min via nasal canula. right groin was prepped with chloroprep then draped in the usual sterile fashion. right radial was prepped with chloroprep then draped in the usual sterile fashion. Physician notified. Baseline sample Acquired. HR: 57 BPM. Family updated by MD prior to the start of the procedure. Equipment: 5F - Femoral. Heparinized Saline (2 units/mL), 1000 mL bag. Cardiac Cath Pack. ACIST Manifold Kit Model BT 2000. Equipment: 5F - Radial. Equipment: 6F - Femoral. Equipment: 6F - Radial. Physician arrived. Physician scrubbed in. Immediate Pre-Procedure Time Out. Correct Patient: Yes; Correct Procedure: Yes; Correct Site: Yes; Correct Patient Position: Yes; Correct Supplies: Yes; Dried Flammable Prep: Yes; Blood Products Available: N/A;. 1st BMP today hemolyzed. aware. Okay to proceed while redraw is running in lab. Lidocaine 1% infiltrated to the right radial. MD using ultrasound for access assistance. Unable to obtain radial access. MD attempting to gain access via the right femoral artery. Lidocaine 1% infiltrated to the right groin. Arterial access obtained. A 5 lao JL4 catheter in over wire. Multiple views taken of left coronary artery. Catheter removed over the standard wire. A 5 lao JR4 catheter in over wire. Multiple views taken of right coronary artery. Catheter removed over the standard wire. A 6 lao JR4 guide catheter in over wire. Guide seated in the LCS. [place] guidewire was advanced through the guide catheter to lesion in the prox RCA. Guidewire advanced across lesion. Inflation number: 1 The MDT NC EUPHORA RX [id number] BALLOON was reinflated across the Prox RCA, to 12 RYAN for 0:30 seconds. Inflation number: 2 The MDT NC EUPHORA RX [id number] BALLOON was reinflated across the Prox RCA, to 12 RYAN for 0:16 seconds. Inflation number: 3 The MDT NC EUPHORA RX [id number] BALLOON was reinflated across the Prox RCA, to 15 RYAN for 0:32 seconds. Results checked. Balloon out. Wire out. Guide out. Physician review of films. Physician scrubbed out. A Suture was successful obtaining hemostatsis at the Right Femoral artery insertion site. Sheath(s) sutured into position with 2-0 silk and sterile 4x4's and Op-site applied over the site. No oozing or signs and symptoms of hematoma noted. Arterial sheath flushed and connected to tranducer and pressure bag with heparinized saline. Post Procedure: Pulses reassessed and unchanged. PERRLA. Strong, equal hand agri business agent bilaterally. No VTE prophylaxis required. Medication waste: Nitro- 50 mg Heparin- 1000 units Fentanyl- 75 mcg. Total IV fluids: 50 mL. Fluoro: 2:09. Contrast type used: Omnipaque 300 mg/mL, 150 mL bottle. [id number]. Post-op diagnosis: CAD. Complications: None. Estimated blood loss: 5mL-10mL. Responsiveness - Normal response to verbal stimuli; alert and oriented, PERRLA. Airway - Unaffected, no intervention required; spontaneous ventilation. Circulation: W/N/L, pulses unchanged. Nausea/Vomiting: No. Procedure completed. Patient transferred by bed to 1st floor. Access Site Site: Right Femoral artery Sheath Size: 6 Fr Hemostasis Method: Suture Hemostasis Success: Successful Procedure Medications Start: 8:22 AM Stop: 8:22 AM Medication: Versed Amount: 1 mg Route: I.V. Start: 8:15 AM Stop: 8:15 AM Medication: Versed 1 mg and Fentanyl 25 mcg Amount: 1 Route: I.V. Start: 9:04 AM Stop: 9:04 AM Medication: Versed Amount: 1 mg Route: I.V. Start: 9:04 AM Stop: 9:04 AM Medication: Heparin Amount: 5000 units Route: I.V. I, the attending physician, have reviewed and verified all procedure medications. Yes, all medications given per verbal order History/Risk Factors Hypertension: Yes Dyslipidemia: Yes Peripheral Arterial Disease (PAD): Yes Myocardial Infarction (KS): No Obesity: No Renal Disease: No Prior Interventions PCI: Yes CABG: No Valve Surgery: No Report Signatures Finalized by Dr. Skyler Freeman MD on 06/08/2023 09:38 AM
[2023-06-08] MEDS: diphenhydrAMINE 50 mg Capsule PO (07:31)
--- NOTE | 2023-06-08 08:08 | W.PM.OPSUD ---
Surgery/Procedure H&P Update DATE OF PROCEDURE: June 08, 2023 DATE H&P PERFORMED: 05/11/23 H&P UPDATE INFORMATION: I have reviewed H&P completed within last 30 days, I have examined patient prior to procedure, No changes to prior documentation and H&P is in [facility] EMR on date indicated CHANGES TO PREVIOUS DOCUMENTATION: None PREOP DIAGNOSIS: CAD PRIMARY INDICATION FOR PROCEDURE: Known CAD, CP with abnormal stress test PLANNED PROCEDURE: Operation Date: 06/08/23 08:30 Proposed Procedures p [facility] [id number], R94.39, R07.9, I20.0(Bilateral) - Skyler Freeman MD
[2023-06-08 08:25] LABS: Anion Gap 13.2 (5-19); Blood Urea Nitrogen 13 mg/dL (8-23); Calcium 8.8 mg/dL (8.5-10.5); Carbon Dioxide 26 mmol/L (22-29); Chloride 103 mmol/L (98-107); Glomerular Filtration Rate 55.9 mL/min (90-130); Glucose 92 mg/dL (65-115); Osmolality Calculated 286 mOsm/kg (285-295); Potassium 4.2 mmol/L (3.5-5.1); Sodium 138 mmol/L (136-145)
[2023-06-08] MEDS: sodium chloride 0.9% 1,000 ML 100 ML IV (10:42)
[2023-06-08 11:48] LABS: Partial Thromboplastin Time 49.2 SECONDS (23.9-36.7)
[2023-06-08] MEDS: FUROsemide 20 mg Tablet PO (13:58)
[2023-06-08] MEDS: gabapentin 400 mg Capsule 800 MG PO ×2 (13:58→20:19)
[2023-06-08] MEDS: metoprolol tartrate 25 mg Tablet PO (17:53)
[2023-06-08] MEDS: OXcarbazepine 300 mg Tablet PO (17:54)
[2023-06-08] MEDS: tizanidine 4 mg Tablet PO (17:54)
[2023-06-08] MEDS: atorvastatin 40 mg Tablet PO (20:19)
[2023-06-08] MEDS: temazepam 15 mg Capsule PO (20:19)
[2023-06-09] VITALS: BP 130/79; PULSE 66; RESP 17; TEMP 36.6; O2SAT 90
[2023-06-09 03:53] VITALS: PULSE 65
[2023-06-09 04:00] VITALS: BP 150/90; PULSE 58; RESP 16; TEMP 36.7; O2SAT 92
--- NOTE | 2023-06-09 07:06 | P.DS_ITS ---
Discharge Providers Date of Admission: 06/08/23 09:27 Date of Discharge: June 09, 2023 Attending Provider at Admission: Skyler Freeman MD Attending Provider at Discharge: Skyler Freeman MD Primary Care Provider: Aleah Padron MD Diagnoses at Discharge Discharge Diagnosis (1) H/O [id number] bypass: Status: Acute (2) Benign hypertension: Status: Chronic Permanent problem details: Lisinopril DC due to low BP (3) Hyperlipidemia: Status: Chronic Qualifiers: Hyperlipidemia type: mixed hyperlipidemia Qualified Code(s): E78.2 - Mixed hyperlipidemia (4) Tobacco abuse: Status: Acute (5) CAD (coronary artery disease): Status: Acute Qualifiers: Coronary Disease-Associated Artery/Lesion type: [place] artery Hoh vs. transplanted heart: [place] heart Associated angina: without angina Qualified Code(s): I25.10 - Atherosclerotic heart disease of [place] coronary artery without angina pectoris (6) Peripheral arterial disease: Status: Acute (7) Old anterior wall myocardial infarction: Status: Acute (8) Ischemic cardiomyopathy: Status: Acute (9) Exertional shortness of breath: Status: Acute (10) Chronic headache: Status: Chronic Qualifiers: Headache type: tension-type Intractability: not intractable Qualified Code(s): G44.229 - Chronic tension-type headache, not intractable (11) COPD, mild: Status: Chronic (12) Unstable angina: Status: Acute (13) S/P coronary artery stent placement: Status: Acute Reason for Visit Reason for Visit: R94.39, R07.9, I20.0 Brief History: Patient with known history of coronary artery disease with prior anterior wall PR and occluded LAD. Also multiple other cardiac diagnoses including peripheral arterial disease with history of aortobifemoral bypass. Previous coronary angiograms done through the right radial artery. Presented to clinic with chest discomfort and shortness of breath with little exertion. Stress testing reveal ed significant ischemia in the distribution of the right, circumflex and to some degree the LAD. As mentioned, he has a known LAD occlusion. He was recommended for repeat angiography. Hospital Course Hospital Course Initially the attempt was made to proceed via the right radial artery. Patient had no radial artery pulse. Ultrasound revealed what looked like the artery however there were no pulsations in the artery. Doppler revealed no flow in the vessel. Attention was changed to the groin where there was significant scar tissue. I was able to find the vessel caudad to the large mat of scar tissue in the groin. The procedure was completed from the right common femoral artery. Patient has a chronic total occlusion of the LAD. The circumflex remains patent. On this occasion the stents in the right coronary artery which go from the ostium to around the acute margin had multiple areas of significant restenosis up to 95+ percent. There was collateral flow to the distal right from both the circumflex and LAD. There is also bridging collaterals to the distal LAD from the diagonal branch and to a minor degree from the circumflex. I elected to angioplasty the right coronary artery which was successful. I did not restent the vessel. There were no complications. On the day of discharge the area of entry on the right groin is flat, dry without bleeding, hematoma or other vascular anomaly. His medications will not change when he goes home. He would be a candidate for coronary bypass surgery should he have recurrence of the restenosis or worsening disease of the circumflex. He is instructed not to lift anything over 10 pounds. He will be seen in follow-up in a week for right groin check and for a chemistry panel. Physical Exam Narrative: GENERAL: In general he looks and feels well HEENT: Exam within normal limits. [] NECK: Supple without jugular vein distention. The carotid upstroke is normal without bruits. [] BACK: Exam normal. [] LUNGS: Clear. [] HEART: Regular rate and rhythm. [] ABDOMEN: Benign without organomegaly or tenderness. [] EXTREMITIES: No edema. The entry site of the right groin is flat, dry without bleeding, hematoma or other vascular anomaly. NEUROLOGIC: Exam normal. [] SKIN: Unremarkable. [] Discharge Data Studies Completed and Pending Completed Studies During Hospitalization Category Date Time Status CAR DISTRIBUTOR request for service Routine Exams 06/08/23 07:30 Completed Laboratory Results APTT 49.2 SECONDS (23.9-36.7) H 06/08/23 11:25 Sodium 138 mmol/L (136-145) 06/08/23 08:00 Potassium 4.2 mmol/L (3.5-5.1) 06/08/23 08:00 Chloride 103 mmol/L (98-107) 06/08/23 08:00 Carbon Dioxide 26 mmol/L (22-29) 06/08/23 08:00 Anion Gap 13.2 (5-19) 06/08/23 08:00 BUN 13 mg/dL (8-23) 06/08/23 08:00 Creatinine 1.3 mg/dL (0.7-1.2) H 06/08/23 08:00 GFR Calculation 55.9 mL/min (90-130) L 06/08/23 08:00 Glucose 92 mg/dL (65-115) 06/08/23 08:00 Calculated Osmolality 286 mOsm/kg (285-295) 06/08/23 08:00 Calcium 8.8 mg/dL (8.5-10.5) 06/08/23 08:00 Procedures Performed Coronary angiography, angioplasty of the right coronary artery Vitals Last Vital Signs Temp 98.1 F 06/09/23 04:00 Pulse 58 L 06/09/23 04:00 Resp 16 06/09/23 04:00 BP 150/90 06/09/23 04:00 Pulse Ox 92 06/09/23 04:00 O2 Del Method Room Air 06/09/23 04:00 Discharge Plan Discharge Patient Disposition: Home Condition: Stable Prescriptions: Continued coenzyme Q10 200 mg capsule 200 mg PO DAILY fluticasone propionate [Flonase Allergy Relief] 50 mcg/actuation spray,suspension 1 spray INTRANASAL BID PRN (Reason: Allergy Symptoms) ferrous sulfate 140 mg (45 mg iron) tablet extended release 140 mg PO DAILY nitroglycerin 0.4 mg tablet, sublingual 0.4 mg SUBLINGUAL Q5M PRN (Reason: Chest Pain) aspirin 325 mg tablet 325 mg PO DAILY amitriptyline 10 mg tablet 20 mg PO DAILY nystatin 100,000 unit/gram powder 1 applic topical DAILY Qty: 60 0RF Rx Instructions: after shower and drying off for prevention fenofibric acid (choline) 135 mg capsule,delayed release(DR/EC) 135 mg PO DAILY 90 Days Qty: 90 3RF gabapentin 800 mg tablet 800 mg PO TID 90 Days Qty: 270 1RF tizanidine 4 mg capsule 4 mg PO BID Xarelto 2.5 mg tablet 2.5 mg PO BID albuterol sulfate 90 mcg/actuation HFA aerosol inhaler 2 puff inhalation Q6H PRN (Reason: shortness of breath or wheezing) Qty: 8.5 0RF Crestor 10 mg tablet 10 mg PO BEDTIME Qty: 90 2RF metoprolol tartrate 25 mg tablet 25 mg PO BID 90 Days Qty: 180 1RF cilostazol 50 mg tablet 50 mg PO BID Qty: 180 1RF furosemide 20 mg tablet 20 mg PO DAILY Qty: 90 3RF potassium chloride 8 mEq tablet extended release 8 meq PO DAILY Qty: 90 2RF multivitamin Tablet 1 tab PO DAILY oxcarbazepine 300 mg tablet 300 mg PO BID calcium carbonate-vitamin D3 600 mg-5 mcg (200 unit) Tablet 1 tab PO DAILY Discharge Orders: Discharge Order (Routine); Ordered 06/09/23 Ordered By: Skyler Freeman Referrals: Mamta Carter FNP [Nurse Practitioner] - 06/22/23 1:00 pm (Right groin check and chemistry panel) Discharge Diet: Cardiac Discharge Activity: Increase activity as tolerated and Limit activity as instructed Patient Instructions: Coronary Angioplasty (DC), Post Angiogram Home Care Instructions Activity Restrictions/Additional Instructions: No lifting over 10 pounds for 2 days. Discharge Attestations Time Spent in Discharge Care*: less than 30 min Quality Metrics Clinical Quality Measures [ No reported AMI, CVA or VTE this stay] Coding Level of Care Code 71969 Total time (in minutes) for Discharge: 30 Diagnoses H/O [id number] bypass Z95.828 Benign hypertension I10 Mixed hyperlipidemia E78.2 Hyperlipidemia type: mixed hyperlipidemia Tobacco abuse Z72.0 Coronary artery disease involving [place] coronary artery of [place] heart without angina pectoris I25.10 Coronary Disease-Associated Artery/Lesion type: [place] artery Hoh vs. transplanted heart: [place] heart Associated angina: without angina Peripheral arterial disease I73.9 Old anterior wall myocardial infarction I25.2 Ischemic cardiomyopathy I25.5 Exertional shortness of breath R06.02 Chronic tension-type headache, not intractable G44.229 Headache type: tension-type Intractability: not intractable COPD, mild J44.9 Unstable angina I20.0 S/P coronary artery stent placement Z95.5
[2023-06-09 07:51] VITALS: BP 147/84; PULSE 66; RESP 21; TEMP 36.4
[2023-06-09 08:23] VITALS: BP 147/84; PULSE 66; RESP 21; TEMP 36.4
--- NOTE | 2023-06-09 08:25 | PC.NURSE ---
Discharge Note Patient discharged to home via wheelchair accompanied by family. Discharge instructions reviewed with patient and/or sales account representative. Mobile pharmacy medications and/or prescriptions provided. Belongings/home medications returned.
== END 2023-06-09 08:26 | disposition home or self-care (01) ==
LOC: CSU 09:29
PROVIDERS: Admitting Provider Internal Medicine Cardiovascular Disease; PCP Family Medicine; Visit Provider Internal Medicine Cardiovascular Disease
DX: I25.110 Atherosclerotic heart disease of native coronary artery with unstable angina pectoris (principal); Z95.828 Presence of other vascular implants and grafts; E78.2 Mixed hyperlipidemia; Z72.0 Tobacco use; I73.9 Peripheral vascular disease, unspecified; I25.2 Old myocardial infarction; R06.02 Shortness of breath; G44.229 Chronic tension-type headache, not intractable; J44.9 Chronic obstructive pulmonary disease, unspecified; Z95.5 Presence of coronary angioplasty implant and graft; Z79.82 Long term (current) use of aspirin; I10 Essential (primary) hypertension
CPT/HCPCS: 36415; 80048; 85730; 92920; 93454; 96361; 96365; 99152; 99153; C1725; C1769; C1887; C1894; G0378; J1644; J2250; J3010; J3490; J7030; Q0163; Q9967

== ENCOUNTER → 2023-06-22 12:53 | Outpatient (BNVA) | payer MEDICARE, MEDICAID, SELFPAY | PROVIDERS: PCP Family Medicine; Visit Provider Nurse Practitioner Family | DX: I25.10 Atherosclerotic heart disease of native coronary artery without angina pectoris (principal); F17.210 Nicotine dependence, cigarettes, uncomplicated; I10 Essential (primary) hypertension | CPT/HCPCS: 36415; 80048; 99214 ==

== ENCOUNTER → 2023-11-09 11:56 | Outpatient (BNVA) | payer MEDICARE, MEDICAID, SELFPAY | PROVIDERS: PCP Family Medicine; Visit Provider Internal Medicine Cardiovascular Disease | DX: I73.9 Peripheral vascular disease, unspecified (principal); Z95.828 Presence of other vascular implants and grafts; E78.2 Mixed hyperlipidemia; I11.0 Hypertensive heart disease with heart failure; I50.42 Chronic combined systolic (congestive) and diastolic (congestive) heart failure; Z72.0 Tobacco use; I25.10 Atherosclerotic heart disease of native coronary artery without angina pectoris; I25.2 Old myocardial infarction; I25.5 Ischemic cardiomyopathy; Z95.5 Presence of coronary angioplasty implant and graft; G44.229 Chronic tension-type headache, not intractable; J44.9 Chronic obstructive pulmonary disease, unspecified | CPT/HCPCS: 99214 ==

== ENCOUNTER 2023-11-21 08:48 | Outpatient (CLI) | payer MEDICARE, MEDICAID, SELFPAY ==
--- NOTE | 2023-11-21 09:00 | CT_ITS ---
WS: [id number] LDCT LUNG CANCER SCREENING TECHNIQUE: Noncontrast CT of the chest with coronal and sagittal reformatted images. CLINICAL INFORMATION: F17.210 - Nicotine dependence, cigarettes, uncomplicated COMPARISON: None. DLP: 75.40 mGy.cm DIvol: Mean CTDIvol: 1.50 (mGy) All CT scans at [facility] use at least one of these dose optimization techniques: automat ed exposure control; mA and/or kV adjustment per patient size (includes targeted exams where dose is matched to clinical indication); or iterative reconstruction. FINDINGS: Chronic emphysematous changes with paraseptal emphysema. Hazy groundglass attenuation throu ghout both lungs with subpleural reticular opacities. Recommend correlation for interstitial lung dis ease and pulmonary function test. Calcified granuloma LEFT upper lobe. No suspicious pulmonary parenc hymal opacities. A few tiny scattered subcentimeter pulmonary nodules measuring 2 to 3 mm Normal caliber thoracic aorta. Aortic calcification. Coronary calcification. No axillary lymphadenopa thy. Adrenal glands are normal. Spleen granulomas. Small esophageal hiatal hernia. . Few prominent RIGHT hilar and peribronchial lymph nodes nonspecific but likely reactive. Calcified LEFT hilar nodes. Coronary calcification. Mild thoracic kyphosis. CT/CT lung screening [id number] IMPRESSION: No comparisons. Chronic emphysematous changes with subpleural retic ular opacities in both lungs. Recommend correlation for interstitial lung disea se. Consider pulmonology consult and pulmonary function testing. LUNG-RADS: 2S-Benign Appearance or Behavior with Significant Findings FOLLOW UP: 12 Month: Continue annual screening with LDCT
== END 2023-11-21 08:49 | disposition home or self-care (01) ==
LOC: RAD 08:48
PROVIDERS: PCP Family Medicine; Visit Provider Family Medicine
DX: Z12.2 Encounter for screening for malignant neoplasm of respiratory organs (principal); F17.210 Nicotine dependence, cigarettes, uncomplicated; J43.8 Other emphysema; R91.8 Other nonspecific abnormal finding of lung field; I70.0 Atherosclerosis of aorta; I25.84 Coronary atherosclerosis due to calcified coronary lesion; D73.89 Other diseases of spleen
CPT/HCPCS: 71271

== ENCOUNTER → 2024-05-09 10:14 | Outpatient (BNVA) | payer MEDICARE, MEDICAID, SELFPAY | PROVIDERS: PCP Family Medicine; Visit Provider Nurse Practitioner Family | DX: I11.0 Hypertensive heart disease with heart failure (principal); I50.42 Chronic combined systolic (congestive) and diastolic (congestive) heart failure; Z95.828 Presence of other vascular implants and grafts; E78.2 Mixed hyperlipidemia; Z72.0 Tobacco use; I25.10 Atherosclerotic heart disease of native coronary artery without angina pectoris; I73.9 Peripheral vascular disease, unspecified; I25.2 Old myocardial infarction; I25.5 Ischemic cardiomyopathy; Z95.5 Presence of coronary angioplasty implant and graft; G44.229 Chronic tension-type headache, not intractable; J44.9 Chronic obstructive pulmonary disease, unspecified | CPT/HCPCS: 36415; 80061; 99213 ==

== ENCOUNTER → 2024-05-13 09:22 | Outpatient (BNVA) | payer MEDICARE, MEDICAID, SELFPAY | PROVIDERS: PCP Family Medicine; Visit Provider Family Medicine | DX: I50.42 Chronic combined systolic (congestive) and diastolic (congestive) heart failure (principal) | CPT/HCPCS: 80053; 85025 ==

== ENCOUNTER → 2024-11-04 14:16 | Outpatient (BNVA) | payer MEDICARE, MEDICAID, SELFPAY | PROVIDERS: PCP Family Medicine; Visit Provider Family Medicine | DX: I50.42 Chronic combined systolic (congestive) and diastolic (congestive) heart failure (principal); Z12.5 Encounter for screening for malignant neoplasm of prostate | CPT/HCPCS: 80053; 85025; G0103 ==

== ENCOUNTER 2024-11-11 15:31 | Outpatient (CLI) | payer MEDICARE, MEDICAID, SELFPAY ==
--- NOTE | 2024-11-11 15:46 | XRR_ITS ---
PROCEDURE INFORMATION: Exam: XR Lumbosacral Spine Exam date and time: 11/11/2024 3:59 PM Age: 64 years old Clinical indication: Low back pain; Prior surgery; Surgery date: 6+ months; Surgery type: L spine; Additional info: M54.50 - low back pain, unspecified TECHNIQUE: Imaging protocol: Radiologic exam of the lumbosacral spine. Views: 2 or 3 views. COMPARISON: CT abdomen pelvis wo/w [id number] 10/07/2021 11:50 AM FINDINGS: Bones/joints: Posterior instrumented fusion with bilateral pedicle screws and vertical struts at L5-S1. Interbody cage graft also seen at this level. Mild leftward curvature of the lumbar spine. Grade 1 retrolisthesis at L1-L2 and L2-L3. Vertebral body heights are maintained. No acute fracture. Soft tissues: Unremarkable. Vasculature: Bilateral iliac artery stent grafts visualized. Scattered atherosclerotic calcifications. XR/XR lumbar spine 2-3V* [id number] IMPRESSION: No acute findings.
--- NOTE | 2024-11-11 15:46 | XRR_ITS ---
PROCEDURE INFORMATION: Exam: XR Thoracic Spine Exam date and time: 11/11/2024 3:59 PM Age: 64 years old Clinical indication: Pain in thoracic spine; Prior surgery; Surgery date: 6+ months; Surgery type: L spine; Additional info: M54.9 - dorsalgia, unspecified TECHNIQUE: Imaging protocol: Radiologic exam of the thoracic spine. Views: 3 views. COMPARISON: CT lung screening [id number] 11/21/2023 8:55 AM FINDINGS: Bones/joints: Normal. No acute fracture. Normal alignment. Soft tissues: Unremarkable. XR/XR thoracic spine 3V* [id number] IMPRESSION: No acute findings.
--- NOTE | 2024-11-11 15:46 | XRR_ITS ---
PROCEDURE INFORMATION: Exam: XR Cervical Spine Exam date and time: 11/11/2024 3:59 PM Age: 64 years old Clinical indication: Pain; Cervicalgia; Additional info: M54.2 - cervicalgia TECHNIQUE: Imaging protocol: Radiologic exam of the cervical spine. Views: 2 or 3 views. COMPARISON: CR XR cervical spine 3V* [id number] 06/20/2022 9:45 AM FINDINGS: Bones/joints: Straightening of normal cervical lordosis. Slight grade 1 degenerative anterolisthesis at C4-C5. Moderate intervertebral disc space height loss and osteophyte formation at C5-C6 and C6-C7. Vertebral body heights are maintained. Soft tissues: Unremarkable. XR/XR cervical spine 3V* [id number] IMPRESSION: 1. No acute osseous findings. 2. Moderate cervical spondylosis most pronounced at C5-C6 and C6-C7.
[2024-11-11 18:11] LABS: Anion Gap 16.7 (5-19); Blood Urea Nitrogen 9 mg/dL (8-23); Calcium 9.3 mg/dL (8.5-10.5); Carbon Dioxide 24 mmol/L (22-29); Chloride 106 mmol/L (98-107); Glucose 81 mg/dL (65-115); Osmolality Calculated 294 mOsm/kg (285-295); Potassium 3.7 mmol/L (3.5-5.1); Sodium 143 mmol/L (136-145)
== END 2024-11-11 15:32 | disposition home or self-care (01) ==
PROVIDERS: PCP Family Medicine; Visit Provider Family Medicine
DX: M47.812 Spondylosis without myelopathy or radiculopathy, cervical region (principal); M54.50 Low back pain, unspecified; E87.6 Hypokalemia; Z98.1 Arthrodesis status
CPT/HCPCS: 36415; 72040; 72072; 72100; 80048

== ENCOUNTER 2024-11-22 05:00 | Outpatient (RCR) | payer OTHER, MEDICAID, SELFPAY | END 2024-12-22 23:59 | disposition home or self-care (01) | LOC: MPT 05:00 | PROVIDERS: PCP Family Medicine; Visit Provider Nurse Practitioner Family | DX: M54.12 Radiculopathy, cervical region (principal) | CPT/HCPCS: 97162 ==

== ENCOUNTER 2024-12-04 07:37 | Outpatient (CLI) | payer OTHER, MEDICAID, SELFPAY ==
--- NOTE | 2024-12-04 07:45 | CT_ITS ---
WS: [id number] LDCT LUNG CANCER SCREENING TECHNIQUE: Noncontrast CT of the chest with coronal and sagittal reformatted images. CLINICAL INFORMATION: F17.210 - Nicotine dependence, cigarettes, uncomplicated COMPARISON: 2023 DLP: 59.31 mGy.cm DIvol: Mean CTDIvol: 1.10 (mGy) All CT scans at [facility] use at least one of these dose optimization techniques: automated exposure control; mA and/or kV adjustment per patient size (includes targeted exams where dose is matched to clinical indication); or iterative reconstruction. FINDINGS: A few tiny scattered subcentimeter pulmonary nodules measuring 2 to 3 mm Chronic emphysematous changes with paraseptal emphysema similar to previous. Hazy groundglass attenuation throughout both lungs with subpleural reticular opacities. Recommend correlation for interstitial lung disease and pulmonary function testing as previously recommended. Calcified granuloma LEFT upper lobe. No new suspicious pulmonary parenchymal opacities. Aortic calcification. Coronary calcification. Adrenal glands are normal. Small esophageal hiatal hernia. Few prominent RIGHT hilar and peribronchial lymph nodes nonspecific but likely reactive and unchanged. Coronary calcification. Mild thoracic kyphosis. CT/CT lung screening [id number] IMPRESSION: LUNG-RADS: 2-Benign Appearance or Behavior FOLLOW UP: 12 Month: Continue annual screening with LDCT
== END 2024-12-04 07:38 | disposition home or self-care (01) ==
LOC: RAD 07:39
PROVIDERS: PCP Family Medicine; Visit Provider Family Medicine
DX: Z12.2 Encounter for screening for malignant neoplasm of respiratory organs (principal); F17.210 Nicotine dependence, cigarettes, uncomplicated; J43.8 Other emphysema; R91.8 Other nonspecific abnormal finding of lung field; J98.4 Other disorders of lung; I70.0 Atherosclerosis of aorta; K44.9 Diaphragmatic hernia without obstruction or gangrene; M40.204 Unspecified kyphosis, thoracic region; I25.10 Atherosclerotic heart disease of native coronary artery without angina pectoris
CPT/HCPCS: 71271

== ENCOUNTER → 2024-12-09 12:42 | Outpatient (BNVA) | payer OTHER, MEDICAID, SELFPAY | PROVIDERS: PCP Family Medicine; Referring Provider Family Medicine; Visit Provider Nurse Practitioner Family | DX: M54.2 Cervicalgia (principal); F17.210 Nicotine dependence, cigarettes, uncomplicated | CPT/HCPCS: 99214 ==

== ENCOUNTER → 2024-12-16 09:31 | Outpatient (BNVA) | payer OTHER, MEDICAID, SELFPAY | PROVIDERS: PCP Family Medicine; Visit Provider Anesthesiology Pain Medicine | DX: M79.18 Myalgia, other site (principal); M54.2 Cervicalgia | CPT/HCPCS: 20553; 99213; J1010; J3490 ==

== ENCOUNTER 2024-12-23 05:00 | Outpatient (RCR) | payer OTHER, MEDICAID, SELFPAY | END 2025-01-21 23:59 | disposition home or self-care (01) | LOC: MPT 05:00 | PROVIDERS: PCP Family Medicine; Visit Provider Nurse Practitioner Family | DX: M54.12 Radiculopathy, cervical region (principal) | CPT/HCPCS: 97110; 97140; G0283 ==

== ENCOUNTER 2025-02-10 09:55 | Outpatient (RCR) | payer OTHER, MEDICAID, SELFPAY | END 2025-02-12 09:06 | disposition home or self-care (01) | LOC: MPT 09:55 | PROVIDERS: PCP Family Medicine; Visit Provider Nurse Practitioner Family | DX: M54.12 Radiculopathy, cervical region (principal) | CPT/HCPCS: 97110; 97140; 97530 ==

== ENCOUNTER → 2025-02-17 08:44 | Outpatient (BNVA) | payer OTHER, MEDICAID, SELFPAY | PROVIDERS: PCP Family Medicine; Visit Provider Nurse Practitioner Family | DX: M54.2 Cervicalgia (principal) | CPT/HCPCS: 99214 ==

== ENCOUNTER → 2025-03-31 08:38 | Outpatient (BNVA) | payer OTHER, MEDICAID, SELFPAY | PROVIDERS: PCP Family Medicine; Visit Provider Nurse Practitioner Family | DX: M54.2 Cervicalgia (principal) | CPT/HCPCS: 99214 ==